=== PATIENT | female | born 1935 | race Caucasian/White ===

== ENCOUNTER 2017-02-08 21:55 | Emergency (ER) | payer MEDICARE ==
[2017-02-08 23:24] LABS: Hematocrit 39 % (35-47); Hemoglobin 13.2 g/dl (12.0-16.0); Mean Corpuscular HGB Conc 34 g/dl (31-36); Mean Corpuscular Hemoglobin 32 pg (27-31); Mean Corpuscular Volume 95 fL (80-97); Mean Platelet Volume 10 um3 (7.4-10.4); Red Blood Count 4.17 10^6/ul (4.0-5.4); Red Cell Distribution Width 14 % (10.5-15); White Blood Count 5.6 10^3/ul (3.5-10.8)
[2017-02-08 23:48] LABS: BUN/Creatinine Ratio 13.3 (8-20); Calcium 9.1 mg/dL (8.6-10.3); EGFR African American 43.1 (>60); EGFR Non-African American 33.5 (>60); Globulin 2.4 g/dL (2-4); Total Bilirubin 0.9 mg/dL (0.2-1.0); Total Protein 6.4 g/dL (6.4-8.9)
[2017-02-09 00:53] LABS: Urine Bacteria Absent (Absent); Urine Bilirubin Negative (Negative); Urine Glucose Negative (Negative); Urine Nitrite Negative (Negative)
[2017-02-09 01:47] VITALS: BP 123/98
--- NOTE | 2017-02-09 04:55 | ED ---
Corry Hines Rebecca, scribed for David Salas on 02/09/17 at 0021 . Hypertension - HPI Summary HPI Summary: Pt is a 81 y/o F who presents to ED c/o elevated BP and CERON. 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 CERON was characterized as a migraine that began at noon. Pain is now resolved, ranked 0/10. Sx aggravated and alleviated by nothing. Additionally c/o worsening tremors. Notes a PMHx of essential tremors but that they have worsened recently. Denies CP, abd pain. PMHx HTN for which she takes Metoprolol. No PMHx [place]. - History of Current Complaint Chief Complaint: EDHypertension Stated Complaint: HAS AFIB,BLOOD PRESSURE UP,TREMORS Time Seen by Provider: 02/09/17 00:00 Hx Obtained From: Patient Onset/Duration: Still Present Aggravating Factor(s): Nothing Alleviating Factor(s): Nothing Associated Signs & Symptoms: Headaches - migraine - resolved - Allergies/Home Medications Allergies/Adverse Reactions: Allergies Allergy/AdvReac Type Severity Reaction Status Date / Time Sulfa Drugs Allergy Severe Difficulty Verified 02/08/17 22:10 Breathing Penicillins [PCN] Allergy Intermediate Hives Verified 02/08/17 22:10 Warfarin Allergy Unknown Verified 02/08/17 22:10 Reaction Details PMH/Surg Hx/FS Hx/Imm Hx Endocrine/Hematology History: Reports: Hx Anticoagulant Therapy - warfarin, Hx Thyroid Disease Denies: Hx Blood Disorders, Hx Blood Transfusions, Hx Bone Marrow Disease, Hx Diabetes, Hx Unexplained Bleeding Cardiovascular History: Reports: Hx Auto Implanted Cardiovert Defib, Hx Hypercholesterolemia, Hx Hypertension, Hx Pacemaker/ICD, Hx Valvular Heart Disease - aortic valve stenosis, Other Cardiovascular Problems/Disorders - TACHY -MARLEE SYNDROME Respiratory History: Denies: Hx Asthma, Hx Chronic Obstructive Pulmonary Disease (COPD), Other Respiratory Problems/Disorders GI History: Reports: Hx Gastroesophageal Reflux Disease, Hx Hiatal Hernia History: Reports: Other Problems/Disorders - frequency Denies: Hx Dialysis Musculoskeletal History: Reports: Hx Arthritis, Hx Orthopedic Injury - Broken Left index finger Denies: Hx Back Problems, Hx Bursitis, Hx Congenital Bone Abnormalities, Hx Fibromyalgia, Hx Gout, Hx Osteoporosis Sensory History: Reports: Hx Cataracts - removed, Hx Contacts or Glasses, Hx Hearing Problem - Right Pt States "not that bad." Denies: Hx Eye Injury, Hx Glaucoma, Hx Macular Degeneration, Hx Vision Problem, Hx Deafness, Hx Hearing Aid, Other Sensory Impairments Opthamlomology History: Reports: Hx Cataracts - removed, Hx Contacts or Glasses Denies: Hx Eye Injury, Hx Glaucoma, Hx Macular Degeneration, Hx Vision Problem, Other Sensory Impairments Neurological History: Reports: Hx Migraine - very seldom now. Denies: Hx Dementia, Hx Seizures Psychiatric History: Reports: Hx Anxiety - Cancer History Cancer Type, Location and Year: three melanoma moles removed. Most recent in 2014 Hx Chemotherapy: No Hx Radiation Therapy: No - Surgical History Surgery Procedure, Year, and Place: RIGHT HIP REPLACEMENT Hx Anesthesia Reactions: No Infectious Disease History: No Infectious Disease History: Reports: Hx Shingles Denies: Traveled Outside the [place] in Last 30 Days - Family History Known Family History: Positive: Cardiac Disease, Hypertension, Diabetes - Social History Alcohol Use: None Substance Use Type: Reports: None Hx Tobacco Use: No Smoking Status (MU): Never Smoked Tobacco Review of Systems Positive: Other - Hypertension Negative: Chest Pain Negative: Abdominal Pain Neurological: Other - Worsening essential tremors Positive: Headache - resolved All Other Systems Reviewed And Are Negative: Yes Physical Exam - Summary Physical Exam Summary: Appearance: Well appearing, no pain distress Skin: warm, dry, reflects adequate perfusion Head/face: normal Eyes: EOMI, RAINA ENT: normal Neck: supple, nontender Respiratory: CTA, breath sounds present Cardiovascular: RRR, pulses symmetrical Abdomen: nontender, soft Bowel: present Musculoskeletal: strength/ROM intact, tremors of the upper extremities Neuro: normal, sensory motor intact, A&Ox3 Triage Information Reviewed: Yes Vital Signs On Initial Exam: Initial Vitals Temp Pulse Resp BP Pulse Ox 96.9 F 61 16 149/79 98 02/08/17 22:13 02/08/17 22:13 02/08/17 22:13 02/08/17 22:13 02/08/17 22:13 Vital Signs Reviewed: Yes - [place] Coma Scale Best Eye Response: 4 - Spontaneous Best Motor Response: 6 - Obeys Commands Best Verbal Response: 5 - Oriented Diagnostics - Vital Signs Vital Signs Temp Pulse Resp BP Pulse Ox 02/09/17 00:14 60 14 95 02/09/17 00:12 135/103 02/08/17 22:13 96.9 F 61 16 149/79 98 - Laboratory Lab Results: Lab Results 02/08/17 02/08/17 02/08/17 Range/Units 22:56 22:56 22:56 WBC 5.6 (3.5-10.8) 10^3/ul RBC 4.17 (4.0-5.4) 10^6/ul Hgb 13.2 (12.0-16.0) g/dl Hct 39 (35-47) % MCV 95 (80-97) fL MCH 32 H (27-31) pg MCHC 34 (31-36) g/dl RDW 14 (10.5-15) % Plt Count 134 L (150-450) 10^3/ul MPV 10 (7.4-10.4) um3 Neut % (Auto) 57.9 (38-83) % Lymph % (Auto) 25.5 (25-47) % Jennings % (Auto) 13.2 H (1-9) % Eos % (Auto) 2.2 (0-6) % Baso % (Auto) 1.2 (0-2) % Absolute Neuts (auto) 3.2 (1.5-7.7) 10^3/ul Absolute Lymphs (auto) 1.4 (1.0-4.8) 10^3/ul Absolute Monos (auto) 0.7 (0-0.8) 10^3/ul Absolute Eos (auto) 0.1 (0-0.6) 10^3/ul Absolute Basos (auto) 0.1 (0-0.2) 10^3/ul Absolute Nucleated RBC 0 10^3/ul Nucleated RBC % 0.1 INR (Anticoag Therapy) 0.90 (0.89-1.11) APTT 29.0 (26.0-36.3) seconds Sodium (133-145) mmol/L Potassium (3.5-5.0) mmol/L Chloride (101-111) mmol/L Carbon Dioxide (22-32) mmol/L Anion Gap (2-11) mmol/L BUN (6-24) mg/dL Creatinine (0.51-0.95) mg/dL Est GFR ( Amer) (>60) Est GFR (Non-Af Amer) (>60) BUN/Creatinine Ratio (8-20) Glucose (70-100) mg/dL Lactic Acid (0.5-2.0) mmol/L Calcium (8.6-10.3) mg/dL Total Bilirubin (0.2-1.0) mg/dL AST (13-39) U/L ALT (7-52) U/L Alkaline Phosphatase (34-104) U/L Troponin I (<0.04) ng/mL B-Natriuretic Peptide 357 H ( - 100) pg/mL Total Protein (6.4-8.9) g/dL Albumin (3.2-5.2) g/dL Globulin (2-4) g/dL Albumin/Globulin Ratio (1-3) 02/08/17 02/08/17 Range/Units 22:56 22:56 WBC (3.5-10.8) 10^3/ul RBC (4.0-5.4) 10^6/ul Hgb (12.0-16.0) g/dl Hct (35-47) % MCV (80-97) fL MCH (27-31) pg MCHC (31-36) g/dl RDW (10.5-15) % Plt Count (150-450) 10^3/ul MPV (7.4-10.4) um3 Neut % (Auto) (38-83) % Lymph % (Auto) (25-47) % Jennings % (Auto) (1-9) % Eos % (Auto) (0-6) % Baso % (Auto) (0-2) % Absolute Neuts (auto) (1.5-7.7) 10^3/ul Absolute Lymphs (auto) (1.0-4.8) 10^3/ul Absolute Monos (auto) (0-0.8) 10^3/ul Absolute Eos (auto) (0-0.6) 10^3/ul Absolute Basos (auto) (0-0.2) 10^3/ul Absolute Nucleated RBC 10^3/ul Nucleated RBC % INR (Anticoag Therapy) (0.89-1.11) APTT (26.0-36.3) seconds Sodium 132 L (133-145) mmol/L Potassium 4.0 (3.5-5.0) mmol/L Chloride 99 L (101-111) mmol/L Carbon Dioxide 27 (22-32) mmol/L Anion Gap 6 (2-11) mmol/L BUN 20 (6-24) mg/dL Creatinine 1.50 H (0.51-0.95) mg/dL Est GFR ( Amer) 43.1 (>60) Est GFR (Non-Af Amer) 33.5 (>60) BUN/Creatinine Ratio 13.3 (8-20) Glucose 107 H (70-100) mg/dL Lactic Acid 0.7 (0.5-2.0) mmol/L Calcium 9.1 (8.6-10.3) mg/dL Total Bilirubin 0.90 (0.2-1.0) mg/dL AST 30 (13-39) U/L ALT 27 (7-52) U/L Alkaline Phosphatase 57 (34-104) U/L Troponin I 0.00 (<0.04) ng/mL B-Natriuretic Peptide ( - 100) pg/mL Total Protein 6.4 (6.4-8.9) g/dL Albumin 4.0 (3.2-5.2) g/dL Globulin 2.4 (2-4) g/dL Albumin/Globulin Ratio 1.7 (1-3) Result Diagrams: 02/08/17 22:56 02/08/17 22:56 Lab Statement: Any lab studies that have been ordered have been reviewed, and results considered in the medical decision making process. - Radiology CXR Xray Interpretation: No Acute Changes Radiology Interpretation Completed By: ED Physician - CT Brain CT CT Interpretation: No Acute Changes - No acute pathology. ED physician reviewed this radiology report and agrees. CT Interpretation Completed By: Radiologist Re-Evaluation - Re-Evaluation First Eval Re-Evaluation Time: 13:29 Comment: Discussed results. Hypertension Course/Dx - Course Assessment/Plan: Pt is a 81 y/o F who presents to ED c/o elevated BP and CERON. 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 CERON was characterized as a migraine that began at noon. Pain is now resolved, ranked 0/ 10. Sx aggravated and alleviated by nothing. Additionally c/o worsening tremors. Notes a PMHx of essential tremors but that they have worsened recently. Denies CP, abd pain. PMHx HTN for which she takes Metoprolol. No PMHx [place]. CXR and Brain CT reveal no acute findings. Pt will be D/C to home with Dx of history of hypertension and a follow up with her PCP. She understands and agrees. Elevated BP noted and advised to f/u with PCP. - Diagnoses Provider Diagnoses: History of hypertension Discharge - Discharge Plan Condition: Stable Disposition: HOME Patient Education Materials: Hypertension (ED) Referrals: Angelica Clark MD [Primary Care Provider] - 3 Days The documentation as recorded by the Corry rajan Rebecca accurately reflects the service I personally performed and the decisions made by Josue luis Emmanuel.
--- NOTE | 2017-02-09 07:58 | RAD ---
INDICATION: Weakness, shortness of breath on exertion. COMPARISON: July 25, 2016 TECHNIQUE: Dual energy PA and routine lateral views of the chest were obtained. REPORT: Elevated lung volumes and both diffuse mild prominence of the interstitial markings and patchy rarefaction of the mid to upper lung zone interstitial markings. No focal pulmonary lesion, compelling alveolar consolidation, pleural effusion, pneumothorax. RIGHT atrial and RIGHT ventricular LEFT chest wall pacemaker leads appear unchanged. Negative for cardiomegaly. Unremarkable central pulmonary vasculature and mediastinal contours. Thoracic degenerative spondylosis. No thoracic fractures evident. IMPRESSION: Stigmata of obstructive lung disease. No acute pulmonary or cardiac process evident.
--- NOTE | 2017-02-09 08:02 | RAD ---
Indication: Headache and elevated blood pressure. Anticoagulated. Comparison: August 30, 2011 Technique: Noncontrast CT vertex of skull through foramen magnum. Report: Moderate prominence of the cerebral sulci and mild prominence of the cerebellar fissures reflecting atrophy. Unremarkable ventricles and basal cisterns. 0.9 cm chronic lacunar infarct at the RIGHT parietal lobe white matter. Decreased density in the periventricular and subcortical white matter while non-specific is most likely due to chronic microangiopathy. Negative for palomares matter white matter obscuration, intra or extra-axial hemorrhage, or mass effect. Large vessel arterial calcifications present at the skull base. Unremarkable visualized orbital contents. No suspicious calvarial or skull base lesions evident. Clear visualized paranasal sinuses and mastoid air spaces. Negative for scalp hematoma. IMPRESSION: 1. No evidence for intracranial hemorrhage or other acute intracranial process. 2. Atrophy and stigmata of chronic small vessel ischemic disease. Small chronic RIGHT parietal lacunar infarct.
--- NOTE | 2017-02-12 08:55 | ED ---
Progress - Progress Note Progress Note: Pt's urine cx reveals 25-50,000 strep group B. She presented w/ a CERON and h/o HTN - pain resolved during visit. Her urine had minimal irregularities and she had no complaints. Due to low organism count w/o sx, she may be colonized with group B strep and therefore no tx is needed at this time. Re-Evaluation - Re-Evaluation First Eval Re-Evaluation Time: 13:29 Comment: Discussed results. Course/Dx - Diagnoses Provider Diagnoses: History of hypertension
== END 2017-02-09 02:01 | disposition home or self-care (01) ==
LOC: ED 21:55
DX: Z86.79 Personal history of other diseases of the circulatory system (principal); Z79.01 Long term (current) use of anticoagulants
CPT/HCPCS: 36415; 70450; 71020; 80053; 81003; 81015; 83605; 83880; 84484; 85025; 85610; 85730; 87077; 87086; 99282

== ENCOUNTER 2017-02-21 10:42 | Inpatient (IN) | payer MEDICARE ==
[2017-02-21] MEDS ORDERED: Ondansetron INJ* 2 MG/ML VIAL IV ONE (12:38)
[2017-02-21] MEDS ORDERED: Morphine INJ* 2 MG/ML 1 ML CARPUJECT IV ONE (12:38)
[2017-02-21] MEDS ORDERED: HYDROmorphone INJ* 1 MG/ML CARPUJECT SYRINGE IV SLOW PU ONE (13:52)
[2017-02-21 13:54] LABS: Hematocrit 37 % (35-47); Hemoglobin 12.3 g/dl (12.0-16.0); Mean Corpuscular HGB Conc 34 g/dl (31-36); Mean Corpuscular Hemoglobin 32 pg (27-31); Mean Corpuscular Volume 95 fL (80-97); Mean Platelet Volume 10 um3 (7.4-10.4); Red Blood Count 3.87 10^6/ul (4.0-5.4); Red Cell Distribution Width 14 % (10.5-15); White Blood Count 9.8 10^3/ul (3.5-10.8)
[2017-02-21 14:12] LABS: EGFR African American 38.1 (>60); EGFR Non-African American 29.6 (>60); Potassium 4.4 mmol/L (3.5-5.0)
[2017-02-21 14:34] LABS: Urine Bacteria Absent (Absent); Urine Bilirubin Negative (Negative); Urine Glucose Negative (Negative); Urine Nitrite Negative (Negative)
--- NOTE | 2017-02-21 15:02 | RAD ---
HISTORY: Back pain, trauma, fall COMPARISONS: None VIEWS: 6 , Frontal, lateral, coned-down lateral sacral, and bilateral oblique views of the lumbar spine. FINDINGS: ALIGNMENT: The alignment is normal. VERTEBRAL BODIES: There is multilevel anterolateral marginal osteophyte formation. There is diffuse osteopenia. The vertebral bodies are preserved in height. JOINTS: There is diffuse facet osteoarthritic change INTERVERTEBRAL DISCS: There is diffuse loss of intervertebral disc height. SOFT TISSUE: Unremarkable. OTHER: The patient is status post right hip arthroplasty. IMPRESSION: 1. OSTEOPENIA. 2. DEGENERATIVE DISC DISEASE AND OSTEOARTHRITIS. 3. NO ACUTE OSSEOUS INJURY. IF SYMPTOMS PERSIST, RECOMMEND REPEAT IMAGING
--- NOTE | 2017-02-21 15:03 | RAD ---
Indication: Fall, right hip pain, left hip pain. Single view the pelvis and 2 views of the right hip and 2 views of left hip were reviewed. There is a right hip prosthesis in place. Acetabular and femoral components are well seated. There is no fracture noted. Pelvic ring is intact. Sacroiliac joints are unremarkable. The left hip is grossly unremarkable. There is some mild cortical incongruity in the right inferior pubic rami for which a nondisplaced fracture cannot BE excluded. IMPRESSION: Right hip replacement with no evidence of periprosthetic fracture. Left hip demonstrates no fracture. Question of right inferior pubic ramus fracture which is nondisplaced.
[2017-02-21] MEDS ORDERED: Ondansetron INJ* 2 MG/ML VIAL IV PRN (15:41)
--- NOTE | 2017-02-21 16:14 | RAD ---
Indication: Pelvic fracture on x-ray. CT of the pelvis was obtained in the axial plane. Sagittal and coronal reconstructed images were obtained. The lower lumbar spine demonstrates no fracture. Facet arthropathy is noted at L5-S1. The iliac wings appears to be intact with no evidence of fracture. There is a right hip prosthesis noted. There is a nondisplaced fracture of the right inferior pubic ramus. Soft tissue swelling is noted adjacent. The urinary bladder is unremarkable. Patient is status post hysterectomy. No pelvic masses are noted. IMPRESSION: Nondisplaced fracture right inferior pubic ramus. Right hip prosthesis is in place.
[2017-02-21] MEDS: Lidocaine PATCH 5%* 1 PATCH TRANSDERM SCH (17:07)
[2017-02-21] MEDS: HYDROcodone/ACETAMIN 5-325 MG* 1 TAB PO PRN ×2 (17:11→20:58)
[2017-02-21] MEDS: Atorvastatin* 10 MG TAB PO SCH (17:12)
--- NOTE | 2017-02-21 17:57 | HP ---
CC: Dr. Clark * HISTORY AND PHYSICAL: DATE OF ADMISSION: 02/21/17 PRIMARY CARE PROVIDER: Dr. Clark. ATTENDING PHYSICIAN WHILE IN THE HOSPITAL: Edmund Worthington MD *(report dictated by Mario Alberto Brown NP) CHIEF COMPLAINT: Fall. HISTORY OF PRESENT ILLNESS: Ms. 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 She did not hit her head. She had no loss of consciousness. She knew something was wrong immediately, she could not get up. She was having a significant amount of pain in her left hip. The patient was calling out for help. One of her daughters came to her aid and her daughter and a friend helped the patient up to the couch and then shortly after she was still having a significant amount of pain and because of the fall and now the recent pain, they brought her into the emergency department to be evaluated. She denied having any chest pain prior to or after. She denied having any shortness of breath. Denied having any abdominal discomfort. Denied having any recent nausea, vomiting. No dysuria. No frequency. Again, she denied having any loss of consciousness with the fall. Denied having any syncope or hitting her head. She came in, was evaluated by Dr. Thomas and was found on x-ray that there might be a possible nondisplaced pubic rami fracture. Because of this, we were asked to evaluate for admission. PAST MEDICAL HISTORY: Significant for: 1. AFib. 2. Tachy-inez syndrome, status post pacemaker. 3. Hypothyroidism. 4. Aortic stenosis. 5. Hyperlipidemia. 6. Hiatal hernia. 7. Tremors. 8. History of pericardial effusion, status post pericardiocentesis about a year ago. 9. History of melanoma. PAST SURGICAL HISTORY: 1. She has had a pericardiocentesis. 2. Tonsillectomy. 3. Hysterectomy. 4. Laparoscopic cholecystectomy. 5. Bladder repair. 6. Right total hip arthroplasty. MEDICATIONS: The home medications according to the list that we have in the computer is being updated and include: 1. Tylenol 650 mg every 6 hours as needed. 2. Amiodarone 400 mg daily. 3. Vitamin D 2000 units daily. 4. Colace 100 mg p.o. b.i.d. 5. Synthroid 75 mcg daily. 6. Lopressor 25 mg p.o. every 12 hours. 7. Crestor 5 mg p.o., take as directed. 8. Senna 2 tablets p.o. at bedtime as needed. 9. Multivitamin 1 tablet daily. ALLERGIES TO MEDICATIONS: Include SULFA, PENICILLIN, and WARFARIN. FAMILY HISTORY: Mother had a history of hypertension and CVA. Father had a history of diabetes and heart disease, at the age of 62. SOCIAL HISTORY: The patient does not drink. She does not smoke. Surrogate decision maker is her son. REVIEW OF SYSTEMS: There is no documented fever. She denied having any significant weight change. There was no double vision. There is no ear discharge. There was no rhinorrhea, no sore throat. No thyroid enlargement. Denied having any chest pain. There was no orthopnea. There was no nocturnal dyspnea. There was no abdominal pain. No nausea, no vomiting. No dysuria. There was no frequency. No seizure. No loss of consciousness, no pruritus and no skin ulcerations. Review of 14 systems completed, all others negative. PHYSICAL EXAMINATION GENERAL: At this time, Ms. Dowd is a 81-year-old female patient. She appears to be well nourished, well developed. She does not appear to be in any acute distress. VITAL SIGNS: Blood pressure 152/64, pulse 61, respirations 18, O2 sat 98% on room air, and temperature was 98.2. HEENT: Head is atraumatic and normocephalic. Eyes: EOMs are intact. Sclerae anicteric and not pale. Throat: Oral mucosa appears to be moist. No oropharyngeal erythema. NECK: Supple. HEART: Sounds S1 and S2. Regular rate and rhythm. No rubs or gallops. There was a grade 2/3 aortic systolic murmur. EXTREMITIES: Pulses were 2+ throughout. She has difficulty moving the right extremity because of a significant amount of pain when she does move it, but distal CSM checks are intact. No peripheral edema. NEUROLOGIC: The patient is awake, alert, oriented x3. Tongue midline. Figure Clerk equal. No gross focal deficits. SKIN: Intact. LABORATORY DATA/DIAGNOSTIC STUDIES: Labs today revealed WBC of 9.8, RBC of 3.87, hemoglobin 12.3, hematocrit 37, platelet count was 123,000. The sodium was 135, potassium was 4.4, chloride of 102, bicarb 28, BUN 25, creatinine 1.67 which is right near baseline and glucose of 111. Calcium 9. Urine was obtained , it was negative. There was a lumbar spine x-ray, which revealed osteopenia, degenerative disk disease, and osteoarthritis. No acute osseous injury. Hip x-ray showed impression, right hip replacement with no evidence of periprosthetic fracture. Left hip demonstrates no fracture, question of right inferior pubic ramus fracture which is nondisplaced. EKG today showed a paced rhythm, rate of 60. Old medical records were reviewed. ASSESSMENT AND PLAN: Ms. Dowd is a 81-year-old female patient who comes in today with complaints of mechanical fall. On evaluation, had question of a pubic rami fracture. She will be admitted under observation status for: 1. Question of a pubic rami fracture. At this point, CT of the pelvis is pending but on clinical exam, she appears to have a significant amount of pain. I am waiting for the CT. Depending on these findings, I will touch base with Orthopedics, but if it is a pubic rami fracture and it is nonsurgical, the plan would be for PT evaluation, pain control. She may benefit from subacute rehab stay. 2. History of atrial fibrillation. She is not on any blood thinners due to the fact of the pericardial effusion in the past. She is rate controlled. We will continue her meds. 3. History of hypothyroidism. We will continue Synthroid. 4. History of aortic stenosis. 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 5. Hyperlipidemia. Continue her Crestor. 6. Hiatal hernia. Continue her meds as prescribed. 7. History of essential tremor. Continue meds as prescribed. 8. Pericardial effusion. Not an active issue. She can follow with her primary and her primary business editor. 9. Melanoma. She can follow with her primary care provider. 10. DVT prophylaxis. She is high risk now with this fracture. I am going to put her on SCDs and heparin subcu. 11. Code status. She is DNR. 12. Fluids, electrolytes, and nutrition. She can have a heart healthy diet. TIME SPENT: On the admission 60 minutes; greater than half the time was spent face- to-face with the patient obtaining my history and physical, other half the time was spent going over the plan of care with the patient and implementing the plan of care. Discussed plan of care with my attending, Dr. Worthington; he is in agreement. MARIO ALBETRO BROWN NP [id number]/CPS #: [id number] MARINA
[2017-02-21] MEDS: Lidocaine Patch REMOVE* 1 NOTE MISC SCH (20:47)
[2017-02-21] MEDS: Metoprolol Tartrate TAB* 50 mg PO SCH (20:59)
[2017-02-21] MEDS: Heparin VIAL(*) 5000 UNITS/ML VIAL (FIVE THOUSAND) SUBCUT SCH (20:59)
[2017-02-21] MEDS: Gabapentin CAP(*) 100 MG PO SCH (20:59)
[2017-02-22] MEDS: Acetaminophen TAB* 325 MG PO PRN (03:08)
[2017-02-22] MEDS: Heparin VIAL(*) 5000 UNITS/ML VIAL (FIVE THOUSAND) SUBCUT SCH ×2 (04:38→21:16)
[2017-02-22] MEDS: Levothyroxine TAB* 75 MCG TAB PO SCH (05:46)
[2017-02-22 06:59] LABS: Hematocrit 32 % (35-47); Hemoglobin 10.9 g/dl (12.0-16.0); Mean Corpuscular HGB Conc 34 g/dl (31-36); Mean Corpuscular Hemoglobin 32 pg (27-31); Mean Corpuscular Volume 94 fL (80-97); Mean Platelet Volume 10 um3 (7.4-10.4); Red Blood Count 3.43 10^6/ul (4.0-5.4); Red Cell Distribution Width 14 % (10.5-15); White Blood Count 6.3 10^3/ul (3.5-10.8)
[2017-02-22 07:09] LABS: Comments Flag Yes
[2017-02-22 07:10] LABS: Add Diff/Slide Review? Slide Review Added
[2017-02-22 07:14] LABS: BUN/Creatinine Ratio 16.2 (8-20); Calcium 8.5 mg/dL (8.6-10.3); EGFR African American 41.8 (>60); EGFR Non-African American 32.5 (>60); Potassium 4.4 mmol/L (3.5-5.0)
[2017-02-22] MEDS: HYDROcodone/ACETAMIN 5-325 MG* 1 TAB PO PRN ×3 (08:09→18:19)
[2017-02-22] MEDS ORDERED: Primidone TAB(*) 50 MG PO SCH (09:00)
[2017-02-22] MEDS ORDERED: Influenza VAC *QUAD* 2017-18* 0.5 ML SYRINGE IM ONE (09:00)
[2017-02-22] MEDS: Lidocaine PATCH 5%* 1 PATCH TRANSDERM SCH (10:13)
[2017-02-22] MEDS: Gabapentin CAP(*) 100 MG PO SCH ×2 (10:14→21:15)
[2017-02-22] MEDS: Amiodarone TAB* 200 MG PO SCH (10:14)
[2017-02-22] MEDS: Metoprolol Tartrate TAB* 50 mg PO SCH ×2 (10:15→20:43)
--- NOTE | 2017-02-22 10:30 | PN ---
Subjective Date of Service: 02/22/17 Interval History: Patient seen and examined at bedside. Ms. Dowd is a 81 yo female who unfortunately sustained a mechanical fall via a missed step and suffered a non- displaced fx of the pubic rami. Prior to the fall, the patient had good functional status, as she was previously independent with ADLs and lives at home by herself. She denies any CP, SOB, n/v. She reports having difficulty sleeping last night, secondary to nocturia and pain. She experiences the most pain when trying to roll onto the bedpan. She is very apprehensive about moving, as she has significant pain while rolling in bed. We spoke extensively about the need to communicate with nursing and honestly reporting her pain, as well as the importance of pain management so that she can participate in therapies to regain her mobility. She also expressed concern about her SQ heparin, as she was admitted last year with pericardial effusion and tamponade that was thought to be secondary to her warfarin for PAF. We discussed her increased risk for thrombus, given her afib, acute fx, and decreased mobility. Patient is also ordered SCDs. Patient also follows with Dr. Davis for tremors and was recently started on primidone (which she stopped due to dizziness and somnolence under the advisement of her PCP) and gabapentin. Family History: Unchanged from Admission Social History: Unchanged from Admission Past Medical History: Unchanged from Admission Objective Active Medications: Acetaminophen (Tylenol Tab*) 650 mg PO Q4H PRN PRN Reason: FEVER/PAIN Last Admin: 02/22/17 03:08 Dose: 650 mg Hydrocodone Bitart/Acetaminophen ([place] 5-325 Tab*) 1 tab PO Q4H PRN PRN Reason: PAIN Last Admin: 02/22/17 08:09 Dose: 1 tab Amiodarone HCl (Cordarone Tab*) 200 mg PO DAILY [facility] Last Admin: 02/22/17 10:14 Dose: 200 mg Atorvastatin Calcium (Lipitor*) 10 mg PO SUTUTHSA [facility] PRN Reason: Protocol Last Admin: 02/21/17 17:12 Dose: 10 mg Gabapentin (Neurontin Cap(*)) 200 mg PO TID [facility] Last Admin: 02/22/17 10:14 Dose: 200 mg Heparin Sodium (Porcine) (Heparin Vial(*)) 5,000 units SUBCUT Q8HR [facility] Last Admin: 02/22/17 04:38 Dose: Not Given Levothyroxine Sodium (Synthroid Tab*) 75 mcg PO DAILY@0600 [facility] Last Admin: 02/22/17 05:46 Dose: 75 mcg Lidocaine (Lidoderm 5% Patch*) 1 patch TRANSDERM DAILY [facility] Last Admin: 02/22/17 10:13 Dose: 1 patch Metoprolol Tartrate (Lopressor Tab*) 50 mg PO BID [facility] Last Admin: 02/22/17 10:15 Dose: Not Given Ondansetron HCl (Zofran Inj*) 4 mg IV Q6H PRN PRN Reason: NAUSEA Pharmacy Profile Note (Lidocaine Patch Remove*) 1 note N/A 2100 [facility] Last Admin: 02/21/17 20:47 Dose: Not Given Primidone (Mysoline Tab(*)) 50 mg PO DAILY [facility] Senna (Senokot Tab*) 2 tab PO BEDTIME PRN PRN Reason: CONSTIPATION Vital Signs 02/21/17 02/21/17 02/21/17 16:00 16:11 16:59 Temperature 98.0 F 98.0 F Pulse Rate 60 59 59 Respiratory 12 18 16 Rate Blood Pressure 114/80 114/80 (mmHg) O2 Sat by Pulse 95 96 96 Oximetry 02/21/17 02/21/17 02/21/17 17:11 19:11 19:31 Temperature 98.5 F Pulse Rate 60 Respiratory 20 18 16 Rate Blood Pressure 155/91 (mmHg) O2 Sat by Pulse 95 Oximetry 02/21/17 02/21/17 02/21/17 20:58 20:59 22:58 Temperature Pulse Rate Respiratory 18 18 16 Rate Blood Pressure (mmHg) O2 Sat by Pulse Oximetry 02/21/17 02/21/17 02/21/17 22:59 23:07 23:11 Temperature 98.4 F Pulse Rate 59 Respiratory 18 16 Rate Blood Pressure 81/41 98/58 (mmHg) O2 Sat by Pulse 95 Oximetry 02/22/17 02/22/17 02/22/17 03:13 07:31 08:09 Temperature 98.4 F 98.3 F Pulse Rate 60 59 Respiratory 16 20 16 Rate Blood Pressure 84/67 95/43 (mmHg) O2 Sat by Pulse 96 95 Oximetry 02/22/17 02/22/17 02/22/17 10:01 10:09 10:14 Temperature Pulse Rate Respiratory 16 16 Rate Blood Pressure (mmHg) O2 Sat by Pulse 93 Oximetry Oxygen Devices in Use Now: Nasal Cannula Appearance: Older female, lying in bed, in NAD Eyes: No Scleral Icterus Ears/Nose/Mouth/Throat: Clear Oropharnyx, Mucous Membranes Moist Neck: NL Appearance and Movements; NL JVP Respiratory: Symmetrical Chest Expansion and Respiratory Effort, Clear to Auscultation Cardiovascular: RRR - grade 3/6 systolic murmur Abdominal: NL Sounds; No Tenderness; No Distention Extremities: No Edema, No Clubbing, Cyanosis, - - distal pulses 2+ and symmetrical Skin: No Rash or Ulcers Neurological: Alert and Oriented x 3, NL Muscle Strength and Tone Lines/Tubes/Other Access: Clean, Dry and Intact Peripheral IV Nutrition: Taking PO's Result Diagrams: 02/22/17 06:34 02/22/17 06:34 Diagnostic Imaging: CT Pelvis IMPRESSION: Nondisplaced fracture right inferior pubic ramus. Right hip prosthesis is in place. Assess/Plan/Problems-Billing Assessment: Ms. Dowd is a 81 yo female with a PMH of atrial fibrillation, tachy-inez syndrome s/p pacemaker, hypothyroidism, aortic stenosis, HLD, tremors, and pericardial effusion s/p pericardiocentesis who presented to the hospital on after a fall and was found to have a pubic rami fracture. - Patient Problems (1) Fracture of pubic ramus Code(s): S32.599A - OTH FRACTURE OF UNSP PUBIS, INIT ENCNTR FOR CLOSED FRACTURE Comment: CT pelvis shows nondisplaced fracture right inferior pubic ramus. Nonsurgical management - cont pain management, PT/OT PMRU referral - patient had good functional status prior and would be a good candidate. (2) Atrial fibrillation Code(s): I48.91 - UNSPECIFIED ATRIAL FIBRILLATION Comment: Currently NSR Continue metoprolol, amiodarone Patient no longer on warfarin, secondary to hx of bloody pericardial effusion (3) Hypothyroid Code(s): E03.9 - HYPOTHYROIDISM, UNSPECIFIED Comment: Continue levothyroxine. (4) Essential tremor Code(s): G25.0 - ESSENTIAL TREMOR Comment: Pt follows with Dr. Davis as an outpatient Pt stopped her primidone, secondary to adverse effects Continue gabapentin; pt is to continue BID dosing and start TID dosing on Mon (5) HLD (hyperlipidemia) Code(s): E78.5 - HYPERLIPIDEMIA, UNSPECIFIED Comment: Continue statin. (6) Aortic stenosis Code(s): Q25.3 - SUPRAVALVULAR AORTIC STENOSIS Comment: Moderate to severe Continue outpatient f/u with Dr. Espino. (7) DVT prophylaxis Comment: SQ heparin BID SCDs Hx of hemorrhagic effusion Status and Disposition: OBV to inpatient. PMRU referral. Anticipate rehab needs.
[2017-02-22] MEDS ORDERED: Morphine INJ* 4 MG/ML 1 ML CARPUJECT IV PRN (15:51)
[2017-02-22] MEDS: CMCS: Melatonin (NF) 3 MG TAB PO SCH (21:15)
[2017-02-22] MEDS: Lidocaine Patch REMOVE* 1 NOTE MISC SCH (21:16)
[2017-02-23] MEDS: HYDROcodone/ACETAMIN 5-325 MG* 1 TAB PO PRN ×3 (05:32→21:25)
[2017-02-23] MEDS: Levothyroxine TAB* 75 MCG TAB PO SCH (05:32)
[2017-02-23 06:32] LABS: Hematocrit 30 % (35-47); Hemoglobin 10.2 g/dl (12.0-16.0); Mean Corpuscular HGB Conc 34 g/dl (31-36); Mean Corpuscular Hemoglobin 32 pg (27-31); Mean Corpuscular Volume 94 fL (80-97); Mean Platelet Volume 10 um3 (7.4-10.4); Red Blood Count 3.17 10^6/ul (4.0-5.4); Red Cell Distribution Width 14 % (10.5-15)
[2017-02-23 06:38] LABS: Comments Flag Yes
[2017-02-23 06:39] LABS: Add Diff/Slide Review? Slide Review Added
[2017-02-23 06:41] LABS: BUN/Creatinine Ratio 14.4 (8-20); Calcium 8.6 mg/dL (8.6-10.3); EGFR Non-African American 36.6 (>60); Potassium 4.1 mmol/L (3.5-5.0)
[2017-02-23] MEDS: Gabapentin CAP(*) 100 MG PO SCH ×2 (08:22→21:25)
[2017-02-23] MEDS: Heparin VIAL(*) 5000 UNITS/ML VIAL (FIVE THOUSAND) SUBCUT SCH ×2 (08:24→21:26)
[2017-02-23] MEDS: Amiodarone TAB* 200 MG PO SCH (08:25)
[2017-02-23] MEDS: Metoprolol Tartrate TAB* 50 mg PO SCH ×2 (08:25→21:29)
[2017-02-23] MEDS: Acetaminophen TAB* 325 MG PO PRN (08:26)
--- NOTE | 2017-02-23 08:44 | ED ---
Renetta Hines Thomas, scribed for John Thomas MD on 02/21/17 at 1253 . Back Pain - HPI Summary HPI Summary: The pt is a 81 y/o F presenting to the ED c/o pains in her lower back, bilateral lower extremity, and right arm s/p a fall that occurred today at 10: 00. She says that she was walking down the stairs when she missed a step and she fell on her right side and her back. She rates the pain 10/10 and it is constant. All of her pains are worsened with movement, especially her lower back. When she moves her arm, this aggravates her lower back pain. The patient has treated the pain with nothing [employer]. Pt denies CERON and neck pain. She was seen at [facility] ED on 02/08/17 with tremors after she began a new medication. She sees Dr. Davis. Her tremor is constant and she speculates that it interferes with her walking. PMHx: HTN, HLD, essential tremors, A-Fib, arthritis. PSHx: pacemaker, R hip replacement. SHx: no smoking, no alcohol use, no illicit drug use. She uses a walker to get around. She is accompanied by her daughter and a male family member. - History of Current Complaint Chief Complaint: EDHipPelvisInjury Stated Complaint: FALL,DOWN STEPS, BACK PAIN, Time Seen by Provider: 02/21/17 12:45 Hx Obtained From: Patient, Family/Legal Referee - daugther, male family member present Onset/Duration: Sudden Onset, Lasting Hours - fall was today at 10:00, Still Present Timing: Constant Back Pain Location: Is Discrete @ - lower back Severity Currently: Severe Pain Intensity: 10 Pain Scale Used: 0-10 Numeric Character: Aching Aggravating Symptom(s): Movement, Walking Alleviating Symptom(s): Nothing Associated Signs And Symptoms: Negative: Fever, Other - NEG: ECRON, neck pain - Allergies/Home Medications Allergies/Adverse Reactions: Allergies Allergy/AdvReac Type Severity Reaction Status Date / Time Sulfa Drugs Allergy Severe Difficulty Verified 02/08/17 22:10 Breathing Penicillins [PCN] Allergy Intermediate Hives Verified 02/08/17 22:10 Warfarin Allergy Unknown Verified 02/08/17 22:10 Reaction Details Home Medications: Home Medications Amiodarone TAB* [Cordarone TAB*] 200 mg PO DAILY 02/21/17 [History Confirmed 05/28] Docusate CAP* [Colace Cap*] 100 mg PO BID PRN 02/21/17 [History Confirmed ] Gabapentin CAP(*) [Neurontin 100 mg CAP(*)] 200 mg PO TID 02/21/17 [History Confirmed 02/21/17] Levothyroxine TAB* [Synthroid TAB*] 75 mcg PO DAILY 02/21/17 [History Confirmed 02/21/17] Metoprolol Tartrate TAB* [Lopressor TAB*] 50 mg PO BID 02/21/17 [History Confirmed 02/21/17] Primidone TAB(*) [Mysoline TAB(*)] 50 mg PO DAILY 02/21/17 [History Confirmed ] Rosuvastatin (NF) [Crestor (NF)] 5 mg PO SUTUTHSA 02/21/17 [History Confirmed ] PMH/Surg Hx/FS Hx/Imm Hx Previously Healthy: No Endocrine/Hematology History: Reports: Hx Anticoagulant Therapy - warfarin, Hx Thyroid Disease Denies: Hx Blood Disorders, Hx Blood Transfusions, Hx Bone Marrow Disease, Hx Diabetes, Hx Unexplained Bleeding Cardiovascular History: Reports: Hx Auto Implanted Cardiovert Defib, Hx Hypercholesterolemia, Hx Hypertension, Hx Pacemaker/ICD, Hx Valvular Heart Disease - aortic valve stenosis, Other Cardiovascular Problems/Disorders - TACHY -MARLEE SYNDROME Respiratory History: Denies: Hx Asthma, Hx Chronic Obstructive Pulmonary Disease (COPD), Other Respiratory Problems/Disorders GI History: Reports: Hx Gastroesophageal Reflux Disease, Hx Hiatal Hernia History: Reports: Other Problems/Disorders - frequency Denies: Hx Dialysis Musculoskeletal History: Reports: Hx Arthritis, Hx Orthopedic Injury - Broken Left index finger Denies: Hx Back Problems, Hx Bursitis, Hx Congenital Bone Abnormalities, Hx Fibromyalgia, Hx Gout, Hx Osteoporosis Sensory History: Reports: Hx Cataracts - removed, Hx Contacts or Glasses, Hx Hearing Problem - Right Pt States "not that bad." Denies: Hx Eye Injury, Hx Glaucoma, Hx Macular Degeneration, Hx Vision Problem, Hx Deafness, Hx Hearing Aid, Other Sensory Impairments Opthamlomology History: Reports: Hx Cataracts - removed, Hx Contacts or Glasses Denies: Hx Eye Injury, Hx Glaucoma, Hx Macular Degeneration, Hx Vision Problem, Other Sensory Impairments Neurological History: Reports: Hx Migraine - very seldom now. Denies: Hx Dementia, Hx Seizures Psychiatric History: Reports: Hx Anxiety - Cancer History Cancer Type, Location and Year: three melanoma moles removed. Most recent in 2014 Hx Chemotherapy: No Hx Radiation Therapy: No - Surgical History Surgery Procedure, Year, and Place: RIGHT HIP REPLACEMENT, pacemaker Hx Anesthesia Reactions: No Infectious Disease History: No Infectious Disease History: Reports: Hx Shingles Denies: Traveled Outside the [place] in Last 30 Days - Family History Known Family History: Positive: Cardiac Disease, Hypertension, Diabetes - Social History Alcohol Use: None Substance Use Type: Reports: None Hx Tobacco Use: No Smoking Status (MU): Never Smoked Tobacco Review of Systems Negative: Fever, Chills Negative: Erythema - eyes Negative: Sore Throat Negative: Chest Pain Negative: Shortness Of Breath, Cough Negative: Abdominal Pain, Vomiting, Nausea Negative: dysuria, hematuria Positive: Other - POS: lower back pain, bilateral lower extremity pain, right arm pain. Negative: Myalgia, Edema - leg Negative: Rash Neurological: Other - POS: essential tremor; NEG: dizziness, LOC Negative: Headache All Other Systems Reviewed And Are Negative: Yes Physical Exam - Summary Physical Exam Summary: Constitutional: Well-developed, Well-nourished, Alert. (-) Distressed Skin: Warm, Dry HENT: Normocephalic; Atraumatic Eyes: Conjunctiva normal Neck: Musculoskeletal ROM normal neck. (-) JVD, (-) Stridor, (-) Tracheal deviation Cardio: Rhythm regular, rate normal, Heart sounds normal; Intact distal pulses; The pedal pulses are 2+ and symmetric. Radial pulses are 2+ and symmetric. (-) Murmur Pulmonary/Chest wall: Effort normal. (-) Respiratory distress, (-) Wheezes, (-) Rales Abd: Soft, (-) Tenderness, (-) Distension, (-) Guarding, (-) Rebound Musculoskeletal: (-) Edema. There is anterior and lateral tenderness to the right hip. She does not tolerate any range of motion with that hip. Lymph: (-) Cervical adenopathy Neuro: Alert, Oriented x3 Psych: Mood and affect Normal Triage Information Reviewed: Yes Vital Signs On Initial Exam: Initial Vitals Temp Pulse Resp BP Pulse Ox 96.2 F 60 16 103/73 95 09/12/17 10:52 02/21/17 10:52 02/21/17 10:52 02/21/17 10:52 02/21/17 10:52 Vital Signs Reviewed: Yes - [place] Coma Scale Coma Scale Total: 15 Diagnostics - Vital Signs Vital Signs Temp Pulse Resp BP Pulse Ox 02/21/17 12:00 60 13 153/66 93 02/21/17 11:34 114 92 02/21/17 11:32 149/86 02/21/17 11:30 98.2 F 60 20 149/86 93 02/21/17 10:52 96.2 F 60 16 103/73 95 - Laboratory Lab Results: Lab Results 02/21/17 02/21/17 02/21/17 Range/Units 12:45 12:45 13:45 WBC 9.8 (3.5-10.8) 10^3/ul RBC 3.87 L (4.0-5.4) 10^6/ul Hgb 12.3 (12.0-16.0) g/dl Hct 37 (35-47) % MCV 95 (80-97) fL MCH 32 H (27-31) pg MCHC 34 (31-36) g/dl RDW 14 (10.5-15) % Plt Count 123 L (150-450) 10^3/ul MPV 10 (7.4-10.4) um3 Neut % (Auto) (38-83) % Lymph % (Auto) (25-47) % [place] % (Auto) (1-9) % Eos % (Auto) (0-6) % Baso % (Auto) (0-2) % Absolute Neuts (auto) (1.5-7.7) 10^3/ul Absolute Lymphs (auto) (1.0-4.8) 10^3/ul Absolute Monos (auto) (0-0.8) 10^3/ul Absolute Eos (auto) (0-0.6) 10^3/ul Absolute Basos (auto) (0-0.2) 10^3/ul Absolute Nucleated RBC 10^3/ul Nucleated RBC % Hem Pathologist Commnt INR (Anticoag Therapy) (0.89-1.11) Sodium 135 (133-145) mmol/L Potassium 4.4 (3.5-5.0) mmol/L Chloride 102 (101-111) mmol/L Carbon Dioxide 28 (22-32) mmol/L Anion Gap 5 (2-11) mmol/L BUN 25 H (6-24) mg/dL Creatinine 1.67 H (0.51-0.95) mg/dL Est GFR ( Amer) 38.1 (>60) Est GFR (Non-Af Amer) 29.6 (>60) BUN/Creatinine Ratio 15.0 (8-20) Glucose 111 H (70-100) mg/dL Calcium 9.0 (8.6-10.3) mg/dL Urine Color Yellow Urine Appearance Clear Urine pH 5.0 (5-9) Ur Specific [place] 1.017 (1.010-1.030) Urine Protein Negative (Negative) Urine Ketones Negative (Negative) Urine Blood Negative (Negative) Urine Nitrate Negative (Negative) Urine Bilirubin Negative (Negative) Urine Urobilinogen Negative (Negative) Ur Leukocyte Esterase Negative (Negative) Urine WBC (Auto) Trace(0-5/hpf) (Absent) Urine RBC (Auto) Trace(0-2/hpf) (Absent) Ur Squamous Epith Cells Present H (Absent) Urine Bacteria Absent (Absent) Urine Glucose Negative (Negative) 02/22/17 02/22/17 02/22/17 Range/Units 06:34 06:34 06:34 WBC 6.3 (3.5-10.8) 10^3/ul RBC 3.43 L (4.0-5.4) 10^6/ul Hgb 10.9 L (12.0-16.0) g/dl Hct 32 L (35-47) % MCV 94 (80-97) fL MCH 32 H (27-31) pg MCHC 34 (31-36) g/dl RDW 14 (10.5-15) % Plt Count 95 L (150-450) 10^3/ul MPV 10 (7.4-10.4) um3 Neut % (Auto) 64.0 (38-83) % Lymph % (Auto) 21.0 L (25-47) % [place] % (Auto) 13.5 H (1-9) % Eos % (Auto) 0.7 (0-6) % Baso % (Auto) 0.8 (0-2) % Absolute Neuts (auto) 4.0 (1.5-7.7) 10^3/ul Absolute Lymphs (auto) 1.3 (1.0-4.8) 10^3/ul Absolute Monos (auto) 0.8 (0-0.8) 10^3/ul Absolute Eos (auto) 0 (0-0.6) 10^3/ul Absolute Basos (auto) 0.1 (0-0.2) 10^3/ul Absolute Nucleated RBC 0 10^3/ul Nucleated RBC % 0.1 Hem Pathologist Commnt INR (Anticoag Therapy) 1.00 (0.89-1.11) Sodium 131 L (133-145) mmol/L Potassium 4.4 (3.5-5.0) mmol/L Chloride 99 L (101-111) mmol/L Carbon Dioxide 27 (22-32) mmol/L Anion Gap 5 (2-11) mmol/L BUN 25 H (6-24) mg/dL Creatinine 1.54 H (0.51-0.95) mg/dL Est GFR ( Amer) 41.8 (>60) Est GFR (Non-Af Amer) 32.5 (>60) BUN/Creatinine Ratio 16.2 (8-20) Glucose 92 (70-100) mg/dL Calcium 8.5 L (8.6-10.3) mg/dL Urine Color Urine Appearance Urine pH (5-9) Ur Specific [place] (1.010-1.030) Urine Protein (Negative) Urine Ketones (Negative) Urine Blood (Negative) Urine Nitrate (Negative) Urine Bilirubin (Negative) Urine Urobilinogen (Negative) Ur Leukocyte Esterase (Negative) Urine WBC (Auto) (Absent) Urine RBC (Auto) (Absent) Ur Squamous Epith Cells (Absent) Urine Bacteria (Absent) Urine Glucose (Negative) Result Diagrams: 02/23/17 05:54 02/23/17 05:54 Lab Statement: Any lab studies that have been ordered have been reviewed, and results considered in the medical decision making process. - Radiology Hip XR Xray Interpretation: Positive (See Comments) - Right hip replacement with no evidence of periprosthetic fracture. Left hip demonstrates no fracture. Question of right inferior pubic ramus fracture which is nondisplaced. ED Physician has reviewed this report and agrees. Radiology Interpretation Completed By: Radiologist L-Spine XR Xray Interpretation: No Acute Changes - L-Spine XR shows 1. OSTEOPENIA. 2. DEGENERATIVE DISC DISEASE AND OSTEOARTHRITIS. 3. NO ACUTE OSSEOUS INJURY. IF SYMPTOMS PERSIST, RECOMMEND REPEAT IMAGING. ED Physician has reviewed this report and agrees. Radiology Interpretation Completed By: Radiologist - EKG 13:38 Cardiac Rate: NL - 60 BPM EKG Interpretation: Biphasic T-Waves V3-V6. No STEMI. Re-Evaluation - Re-Evaluation First Eval Re-Evaluation Time: 13:50 Change: Unchanged Comment: After pain medication, I further examined the patient. She is still in too much pain to fully examine the hip. Back Pain Course/Dx - Course Assessment/Plan: The pt is a 81 y/o F presenting to the ED c/o pains in her lower back, bilateral lower extremity, and right arm s/p a fall that occurred today at 10:00. She says that she was walking down the stairs when she missed a step and she fell on her right side and her back. Pt denies CERON and neck pain. Bloodwork shows RBC 3.87, Creatinine 1.67. UA was negative. In the ED she was given morphine and Zofran. EKG shows biphasic T-waves with no STEMI. Hip XR shows Right hip replacement with no evidence of periprosthetic fracture. Left hip demonstrates no fracture. Question of right inferior pubic ramus fracture which is nondisplaced. L-Spine XR shows 1. OSTEOPENIA. 2. DEGENERATIVE DISC DISEASE AND OSTEOARTHRITIS. 3. NO ACUTE OSSEOUS INJURY. IF SYMPTOMS PERSIST, RECOMMEND REPEAT IMAGING. ED Physician has reviewed this report and agrees. I consulted with Mario Alberto Brown NP, who admits the patient to [facility] at 15:36. - Diagnoses Provider Diagnoses: Pubic ramus fracture - Provider Notifications Discussed Care Of Patient With: Mario Alberto Brown Time Discussed With Above Provider: 15:36 Instructed by Provider To: Other - I consulted with Mario Alberto Brown NP, who admits the patient to [facility]. Discharge - Discharge Plan Condition: Fair Disposition: ADMITTED TO [facility] documentation as recorded by the Renetta rajan Thomas accurately reflects the service I personally performed and the decisions made by me, John Thomas MD.
[2017-02-23] MEDS: Lidocaine PATCH 5%* 1 PATCH TRANSDERM SCH (10:33)
--- NOTE | 2017-02-23 13:13 | PN ---
Subjective Date of Service: 02/23/17 Interval History: Ms. Dowd reports no complaint other than pain to her right hip when she moves. She is reluctant to get out of bed due to the pain. She denies chest pain, SOB, nausea, or abdominal pain. Family History: Unchanged from Admission Social History: Unchanged from Admission Past Medical History: Unchanged from Admission Objective Active Medications: Acetaminophen (Tylenol Tab*) 650 mg PO Q4H PRN Hydrocodone Bitart/Acetaminophen ([place] 5-325 Tab*) 1 tab PO Q4H PRN Amiodarone HCl (Cordarone Tab*) 200 mg PO DAILY [facility] Atorvastatin Calcium (Lipitor*) 10 mg PO SUTUTHSA [facility] Gabapentin (Neurontin Cap(*)) 200 mg PO TID [facility] Gabapentin (Neurontin Cap(*)) 200 mg PO BID [facility] Heparin Sodium (Porcine) (Heparin Vial(*)) 5,000 units SUBCUT BID [facility] Levothyroxine Sodium (Synthroid Tab*) 75 mcg PO DAILY@0600 [facility] Lidocaine (Lidoderm 5% Patch*) 1 patch TRANSDERM DAILY [facility] Melatonin (Melatonin (Nf)) 3 mg PO BEDTIME [facility] Metoprolol Tartrate (Lopressor Tab*) 50 mg PO BID [facility] Morphine Sulfate (Morphine Inj (Syringe)*) 2 mg IV Q4H PRN Ondansetron HCl (Zofran Inj*) 4 mg IV Q6H PRN Pharmacy Profile Note (Lidocaine Patch Remove*) 1 note N/A 2100 [facility] Senna (Senokot Tab*) 2 tab PO BEDTIME PRN Vital Signs 02/22/17 02/22/17 02/22/17 15:04 15:15 15:17 Temperature 97.9 F 97.9 F Pulse Rate 60 60 Respiratory 16 16 16 Rate Blood Pressure 104/38 96/35 (mmHg) O2 Sat by Pulse 95 95 Oximetry 02/22/17 02/22/17 02/22/17 15:30 18:19 20:18 Temperature Pulse Rate Respiratory 16 18 Rate Blood Pressure 110/60 (mmHg) O2 Sat by Pulse Oximetry 02/22/17 02/22/17 02/22/17 20:19 20:42 21:15 Temperature 98.8 F Pulse Rate 62 Respiratory 18 21 18 Rate Blood Pressure 106/45 (mmHg) O2 Sat by Pulse 94 Oximetry 02/22/17 02/22/17 02/23/17 23:15 23:28 02:03 Temperature 98.0 F Pulse Rate 64 Respiratory 18 16 Rate Blood Pressure 102/39 (mmHg) O2 Sat by Pulse 91 91 Oximetry 02/23/17 02/23/17 02/23/17 03:32 05:32 07:29 Temperature 98.2 F 98.5 F Pulse Rate 66 66 Respiratory 16 18 18 Rate Blood Pressure 95/36 100/48 (mmHg) O2 Sat by Pulse 94 93 Oximetry 02/23/17 02/23/17 02/23/17 07:32 08:22 10:22 Temperature Pulse Rate Respiratory 16 16 17 Rate Blood Pressure (mmHg) O2 Sat by Pulse Oximetry 02/23/17 02/23/17 11:51 12:06 Temperature 98.3 F Pulse Rate 64 Respiratory 18 Rate Blood Pressure 104/40 (mmHg) O2 Sat by Pulse 93 91 Oximetry Oxygen Devices in Use Now: None Appearance: Female lying in bed in NAD Eyes: No Scleral Icterus Ears/Nose/Mouth/Throat: Mucous Membranes Moist Neck: Trachea Midline Respiratory: Symmetrical Chest Expansion and Respiratory Effort, Clear to Auscultation Cardiovascular: NL Sounds; No Murmurs; No JVD, No Edema Abdominal: NL Sounds; No Tenderness; No Distention Lymphatic: No Cervical Adenopathy Extremities: No Edema Skin: No Rash or Ulcers Neurological: Alert and Oriented x 3, NL Muscle Strength and Tone Nutrition: Taking PO's Result Diagrams: 02/23/17 05:54 02/23/17 05:54 Additional Lab and Data: Lab Results 02/21/17 02/21/17 02/21/17 Range/Units 12:45 12:45 13:45 WBC 9.8 (3.5-10.8) 10^3/ul RBC 3.87 L (4.0-5.4) 10^6/ul Hgb 12.3 (12.0-16.0) g/dl Hct 37 (35-47) % MCV 95 (80-97) fL MCH 32 H (27-31) pg MCHC 34 (31-36) g/dl RDW 14 (10.5-15) % Plt Count 123 L (150-450) 10^3/ul MPV 10 (7.4-10.4) um3 Neut % (Auto) (38-83) % Lymph % (Auto) (25-47) % [place] % (Auto) (1-9) % Eos % (Auto) (0-6) % Baso % (Auto) (0-2) % Absolute Neuts (auto) (1.5-7.7) 10^3/ul Absolute Lymphs (auto) (1.0-4.8) 10^3/ul Absolute Monos (auto) (0-0.8) 10^3/ul Absolute Eos (auto) (0-0.6) 10^3/ul Absolute Basos (auto) (0-0.2) 10^3/ul Absolute Nucleated RBC 10^3/ul Nucleated RBC % Hem Pathologist Commnt INR (Anticoag Therapy) (0.89-1.11) Sodium 135 (133-145) mmol/L Potassium 4.4 (3.5-5.0) mmol/L Chloride 102 (101-111) mmol/L Carbon Dioxide 28 (22-32) mmol/L Anion Gap 5 (2-11) mmol/L BUN 25 H (6-24) mg/dL Creatinine 1.67 H (0.51-0.95) mg/dL Est GFR ( Amer) 38.1 (>60) Est GFR (Non-Af Amer) 29.6 (>60) BUN/Creatinine Ratio 15.0 (8-20) Glucose 111 H (70-100) mg/dL Calcium 9.0 (8.6-10.3) mg/dL Urine Color Yellow Urine Appearance Clear Urine pH 5.0 (5-9) Ur Specific [place] 1.017 (1.010-1.030) Urine Protein Negative (Negative) Urine Ketones Negative (Negative) Urine Blood Negative (Negative) Urine Nitrate Negative (Negative) Urine Bilirubin Negative (Negative) Urine Urobilinogen Negative (Negative) Ur Leukocyte Esterase Negative (Negative) Urine WBC (Auto) Trace(0-5/hpf) (Absent) Urine RBC (Auto) Trace(0-2/hpf) (Absent) Ur Squamous Epith Cells Present H (Absent) Urine Bacteria Absent (Absent) Urine Glucose Negative (Negative) 02/22/17 02/22/17 02/22/17 Range/Units 06:34 06:34 06:34 WBC 6.3 (3.5-10.8) 10^3/ul RBC 3.43 L (4.0-5.4) 10^6/ul Hgb 10.9 L (12.0-16.0) g/dl Hct 32 L (35-47) % MCV 94 (80-97) fL MCH 32 H (27-31) pg MCHC 34 (31-36) g/dl RDW 14 (10.5-15) % Plt Count 95 L (150-450) 10^3/ul MPV 10 (7.4-10.4) um3 Neut % (Auto) 64.0 (38-83) % Lymph % (Auto) 21.0 L (25-47) % [place] % (Auto) 13.5 H (1-9) % Eos % (Auto) 0.7 (0-6) % Baso % (Auto) 0.8 (0-2) % Absolute Neuts (auto) 4.0 (1.5-7.7) 10^3/ul Absolute Lymphs (auto) 1.3 (1.0-4.8) 10^3/ul Absolute Monos (auto) 0.8 (0-0.8) 10^3/ul Absolute Eos (auto) 0 (0-0.6) 10^3/ul Absolute Basos (auto) 0.1 (0-0.2) 10^3/ul Absolute Nucleated RBC 0 10^3/ul Nucleated RBC % 0.1 Hem Pathologist Commnt INR (Anticoag Therapy) 1.00 (0.89-1.11) Sodium 131 L (133-145) mmol/L Potassium 4.4 (3.5-5.0) mmol/L Chloride 99 L (101-111) mmol/L Carbon Dioxide 27 (22-32) mmol/L Anion Gap 5 (2-11) mmol/L BUN 25 H (6-24) mg/dL Creatinine 1.54 H (0.51-0.95) mg/dL Est GFR ( Amer) 41.8 (>60) Est GFR (Non-Af Amer) 32.5 (>60) BUN/Creatinine Ratio 16.2 (8-20) Glucose 92 (70-100) mg/dL Calcium 8.5 L (8.6-10.3) mg/dL Urine Color Urine Appearance Urine pH (5-9) Ur Specific [place] (1.010-1.030) Urine Protein (Negative) Urine Ketones (Negative) Urine Blood (Negative) Urine Nitrate (Negative) Urine Bilirubin (Negative) Urine Urobilinogen (Negative) Ur Leukocyte Esterase (Negative) Urine WBC (Auto) (Absent) Urine RBC (Auto) (Absent) Ur Squamous Epith Cells (Absent) Urine Bacteria (Absent) Urine Glucose (Negative) Diagnostic Imaging: CT Pelvis IMPRESSION: Nondisplaced fracture right inferior pubic ramus. Right hip prosthesis is in place. Assess/Plan/Problems-Billing Assessment: Ms. Dowd is a 81 yo female with a PMH of atrial fibrillation, tachy-inez syndrome s/p pacemaker, hypothyroidism, aortic stenosis, HLD, tremors, and pericardial effusion s/p pericardiocentesis who presented to the hospital on after a fall and was found to have a pubic rami fracture. - Patient Problems (1) Fracture of pubic ramus Comment: - CT pelvis shows nondisplaced fracture right inferior pubic ramus. - Have placed call to Dr Jefferson to discuss case and verify treatment plan and follow up. - Nonsurgical management - cont pain management, PT/OT. - PMRU vs subacute rehab will be needed. - Increased pain meds to promote mobility. (2) Atrial fibrillation Comment: - Currently NSR. - Continue metoprolol, amiodarone. - Patient no longer on warfarin, secondary to hx of bloody pericardial effusion. (3) Essential tremor Comment: - Pt follows with Dr. Davis as an outpatient. - Pt stopped her primidone, secondary to adverse effects. - Continue gabapentin; pt is to continue BID dosing and start TID dosing on 02/24. (4) HLD (hyperlipidemia) Comment: - Continue statin. (5) Aortic stenosis Current Visit: No Comment: - Moderate to severe, asymptomatic. - Continue outpatient f/u with Dr. Espino. (6) Hypothyroid Comment: - Continue levothyroxine. (7) DVT prophylaxis Comment: - SQ heparin BID with SCDS due to history of hemorrhagic effusion. (8) Full code status Status and Disposition: Inpatient. Anticipate [facility] vs PMRU.
[2017-02-23] MEDS ORDERED: Morphine INJ* 4 MG/ML 1 ML CARPUJECT IV PRN (13:33)
[2017-02-23] MEDS: Polyethylene Glycol 3350* 17 GM PACKET PO PRN (15:20)
[2017-02-23] MEDS: Docusate CAP* 100 MG PO PRN (15:20)
[2017-02-23] MEDS: Atorvastatin* 10 MG TAB PO SCH (16:17)
[2017-02-23] MEDS: CMCS: Melatonin (NF) 3 MG TAB PO SCH (21:26)
[2017-02-23] MEDS: Lidocaine Patch REMOVE* 1 NOTE MISC SCH (21:30)
[2017-02-24] MEDS: Levothyroxine TAB* 75 MCG TAB PO SCH (05:32)
[2017-02-24 07:40] LABS: Comments Flag Yes; Hematocrit 30 % (35-47); Hemoglobin 10.1 g/dl (12.0-16.0)
[2017-02-24] MEDS: Metoprolol Tartrate TAB* 50 mg PO SCH ×2 (08:35→21:38)
[2017-02-24] MEDS: Gabapentin CAP(*) 100 MG PO SCH ×3 (08:35→21:38)
[2017-02-24] MEDS: Amiodarone TAB* 200 MG PO SCH (08:36)
[2017-02-24] MEDS: HYDROcodone/ACETAMIN 5-325 MG* 1 TAB PO PRN ×4 (08:40→21:37)
[2017-02-24] MEDS: Lidocaine PATCH 5%* 1 PATCH TRANSDERM SCH (08:41)
[2017-02-24] MEDS: Heparin VIAL(*) 5000 UNITS/ML VIAL (FIVE THOUSAND) SUBCUT SCH ×2 (08:41→21:40)
[2017-02-24] MEDS: Polyethylene Glycol 3350* 17 GM PACKET PO PRN (11:29)
--- NOTE | 2017-02-24 15:09 | PN ---
Subjective Date of Service: 02/24/17 Interval History: Ms. Dowd reports doing well today. She was able to get out of bed to the chair for several hours today. She continues to have some pain in her hip but it does seem to be a bit better. She denies other complaint including chest pain, SOB, nausea, or abdominal pain. Family History: Unchanged from Admission Social History: Unchanged from Admission Past Medical History: Unchanged from Admission Objective Active Medications: Acetaminophen (Tylenol Tab*) 650 mg PO Q4H PRN Hydrocodone Bitart/Acetaminophen ([place] 5-325 Tab*) 1 tab PO Q4H PRN Hydrocodone Bitart/Acetaminophen ([place] 5-325 Tab*) 2 tab PO Q4H PRN Amiodarone HCl (Cordarone Tab*) 200 mg PO DAILY [facility] Atorvastatin Calcium (Lipitor*) 10 mg PO SUTUTHSA [facility] Docusate Sodium (Colace Cap*) 100 mg PO DAILY [facility] Gabapentin (Neurontin Cap(*)) 200 mg PO TID [facility] Heparin Sodium (Porcine) (Heparin Vial(*)) 5,000 units SUBCUT BID [facility] Levothyroxine Sodium (Synthroid Tab*) 75 mcg PO DAILY@0600 [facility] Lidocaine (Lidoderm 5% Patch*) 1 patch TRANSDERM DAILY [facility] Melatonin (Melatonin (Nf)) 3 mg PO BEDTIME [facility] Metoprolol Tartrate (Lopressor Tab*) 50 mg PO BID [facility] Morphine Sulfate (Morphine Inj (Syringe)*) 4 mg IV Q4H PRN Ondansetron HCl (Zofran Inj*) 4 mg IV Q6H PRN Pharmacy Profile Note (Lidocaine Patch Remove*) 1 note N/A 2100 [facility] Polyethylene Glycol/Electrolytes (Miralax*) 17 gm PO DAILY PRN Senna (Senokot Tab*) 2 tab PO BEDTIME PRN Vital Signs: Temp Pulse Resp BP Pulse Ox 98.2 F 144 16 148/106 94 02/24/17 15:37 02/24/17 15:37 02/24/17 15:37 02/24/17 15:37 02/24/17 15:37 Oxygen Devices in Use Now: None Appearance: Female lying in bed in NAD Eyes: No Scleral Icterus Ears/Nose/Mouth/Throat: Mucous Membranes Moist Neck: Trachea Midline Respiratory: Symmetrical Chest Expansion and Respiratory Effort, Clear to Auscultation Cardiovascular: NL Sounds; No Murmurs; No JVD, No Edema Abdominal: NL Sounds; No Tenderness; No Distention Lymphatic: No Cervical Adenopathy Extremities: No Edema Skin: No Rash or Ulcers Neurological: Alert and Oriented x 3, NL Muscle Strength and Tone Nutrition: Taking PO's Result Diagrams: 02/24/17 07:09 02/23/17 05:54 Additional Lab and Data: Lab Results 02/21/17 02/21/17 02/21/17 Range/Units 12:45 12:45 13:45 WBC 9.8 (3.5-10.8) 10^3/ul RBC 3.87 L (4.0-5.4) 10^6/ul Hgb 12.3 (12.0-16.0) g/dl Hct 37 (35-47) % MCV 95 (80-97) fL MCH 32 H (27-31) pg MCHC 34 (31-36) g/dl RDW 14 (10.5-15) % Plt Count 123 L (150-450) 10^3/ul MPV 10 (7.4-10.4) um3 Neut % (Auto) (38-83) % Lymph % (Auto) (25-47) % [place] % (Auto) (1-9) % Eos % (Auto) (0-6) % Baso % (Auto) (0-2) % Absolute Neuts (auto) (1.5-7.7) 10^3/ul Absolute Lymphs (auto) (1.0-4.8) 10^3/ul Absolute Monos (auto) (0-0.8) 10^3/ul Absolute Eos (auto) (0-0.6) 10^3/ul Absolute Basos (auto) (0-0.2) 10^3/ul Absolute Nucleated RBC 10^3/ul Nucleated RBC % Hem Pathologist Commnt INR (Anticoag Therapy) (0.89-1.11) Sodium 135 (133-145) mmol/L Potassium 4.4 (3.5-5.0) mmol/L Chloride 102 (101-111) mmol/L Carbon Dioxide 28 (22-32) mmol/L Anion Gap 5 (2-11) mmol/L BUN 25 H (6-24) mg/dL Creatinine 1.67 H (0.51-0.95) mg/dL Est GFR ( Amer) 38.1 (>60) Est GFR (Non-Af Amer) 29.6 (>60) BUN/Creatinine Ratio 15.0 (8-20) Glucose 111 H (70-100) mg/dL Calcium 9.0 (8.6-10.3) mg/dL Urine Color Yellow Urine Appearance Clear Urine pH 5.0 (5-9) Ur Specific [place] 1.017 (1.010-1.030) Urine Protein Negative (Negative) Urine Ketones Negative (Negative) Urine Blood Negative (Negative) Urine Nitrate Negative (Negative) Urine Bilirubin Negative (Negative) Urine Urobilinogen Negative (Negative) Ur Leukocyte Esterase Negative (Negative) Urine WBC (Auto) Trace(0-5/hpf) (Absent) Urine RBC (Auto) Trace(0-2/hpf) (Absent) Ur Squamous Epith Cells Present H (Absent) Urine Bacteria Absent (Absent) Urine Glucose Negative (Negative) 02/22/17 02/22/17 02/22/17 Range/Units 06:34 06:34 06:34 WBC 6.3 (3.5-10.8) 10^3/ul RBC 3.43 L (4.0-5.4) 10^6/ul Hgb 10.9 L (12.0-16.0) g/dl Hct 32 L (35-47) % MCV 94 (80-97) fL MCH 32 H (27-31) pg MCHC 34 (31-36) g/dl RDW 14 (10.5-15) % Plt Count 95 L (150-450) 10^3/ul MPV 10 (7.4-10.4) um3 Neut % (Auto) 64.0 (38-83) % Lymph % (Auto) 21.0 L (25-47) % [place] % (Auto) 13.5 H (1-9) % Eos % (Auto) 0.7 (0-6) % Baso % (Auto) 0.8 (0-2) % Absolute Neuts (auto) 4.0 (1.5-7.7) 10^3/ul Absolute Lymphs (auto) 1.3 (1.0-4.8) 10^3/ul Absolute Monos (auto) 0.8 (0-0.8) 10^3/ul Absolute Eos (auto) 0 (0-0.6) 10^3/ul Absolute Basos (auto) 0.1 (0-0.2) 10^3/ul Absolute Nucleated RBC 0 10^3/ul Nucleated RBC % 0.1 Hem Pathologist Commnt INR (Anticoag Therapy) 1.00 (0.89-1.11) Sodium 131 L (133-145) mmol/L Potassium 4.4 (3.5-5.0) mmol/L Chloride 99 L (101-111) mmol/L Carbon Dioxide 27 (22-32) mmol/L Anion Gap 5 (2-11) mmol/L BUN 25 H (6-24) mg/dL Creatinine 1.54 H (0.51-0.95) mg/dL Est GFR ( Amer) 41.8 (>60) Est GFR (Non-Af Amer) 32.5 (>60) BUN/Creatinine Ratio 16.2 (8-20) Glucose 92 (70-100) mg/dL Calcium 8.5 L (8.6-10.3) mg/dL Urine Color Urine Appearance Urine pH (5-9) Ur Specific [place] (1.010-1.030) Urine Protein (Negative) Urine Ketones (Negative) Urine Blood (Negative) Urine Nitrate (Negative) Urine Bilirubin (Negative) Urine Urobilinogen (Negative) Ur Leukocyte Esterase (Negative) Urine WBC (Auto) (Absent) Urine RBC (Auto) (Absent) Ur Squamous Epith Cells (Absent) Urine Bacteria (Absent) Urine Glucose (Negative) Diagnostic Imaging: CT Pelvis IMPRESSION: Nondisplaced fracture right inferior pubic ramus. Right hip prosthesis is in place. Assess/Plan/Problems-Billing Assessment: Ms. Dowd is a 81 yo female with a PMH of atrial fibrillation, tachy-inez syndrome s/p pacemaker, hypothyroidism, aortic stenosis, HLD, tremors, and pericardial effusion s/p pericardiocentesis who presented to the hospital on after a fall and was found to have a pubic rami fracture. - Patient Problems (1) Fracture of pubic ramus Comment: - Mobility improving very slowly. - CT pelvis shows nondisplaced fracture right inferior pubic ramus. - Nonsurgical management - cont pain management, PT/OT. - PMRU vs subacute rehab will be needed. - Increased pain meds to promote mobility. (2) Atrial fibrillation Comment: - Currently NSR. - Continue metoprolol, amiodarone. - Patient no longer on warfarin, secondary to hx of bloody pericardial effusion. (3) Essential tremor Comment: - Pt follows with Dr. Davis as an outpatient. - Pt stopped her primidone, secondary to adverse effects. - Continue gabapentin; pt is to continue BID dosing and start TID dosing on 02/24. (4) HLD (hyperlipidemia) Comment: - Continue statin. (5) Aortic stenosis Current Visit: No Comment: - Moderate to severe, asymptomatic. - Continue outpatient f/u with Dr. Espino. (6) Hypothyroid Comment: - Continue levothyroxine. (7) DVT prophylaxis Comment: - SQ heparin BID with SCDS due to history of hemorrhagic effusion. (8) Full code status Status and Disposition: Inpatient. Anticipate [facility] vs PMRU.
[2017-02-24] MEDS: CMCS: Melatonin (NF) 3 MG TAB PO SCH (21:39)
[2017-02-24] MEDS: Lidocaine Patch REMOVE* 1 NOTE MISC SCH (21:52)
[2017-02-25] MEDS: Levothyroxine TAB* 75 MCG TAB PO SCH (06:20)
[2017-02-25] MEDS: HYDROcodone/ACETAMIN 5-325 MG* 1 TAB PO PRN ×3 (06:21→21:37)
[2017-02-25 07:42] LABS: Hematocrit 30 % (35-47); Hemoglobin 10.3 g/dl (12.0-16.0); Mean Corpuscular HGB Conc 34 g/dl (31-36); Mean Corpuscular Hemoglobin 32 pg (27-31); Mean Corpuscular Volume 93 fL (80-97); Mean Platelet Volume 11 um3 (7.4-10.4); Red Blood Count 3.22 10^6/ul (4.0-5.4); Red Cell Distribution Width 15 % (10.5-15); White Blood Count 6.2 10^3/ul (3.5-10.8)
[2017-02-25] MEDS: Polyethylene Glycol 3350* 17 GM PACKET PO PRN (09:10)
[2017-02-25] MEDS: Lidocaine PATCH 5%* 1 PATCH TRANSDERM SCH (09:10)
[2017-02-25] MEDS: Heparin VIAL(*) 5000 UNITS/ML VIAL (FIVE THOUSAND) SUBCUT SCH ×2 (09:11→22:06)
[2017-02-25] MEDS: Gabapentin CAP(*) 100 MG PO SCH ×3 (09:12→22:06)
[2017-02-25] MEDS: Acetaminophen TAB* 325 MG PO PRN (09:12)
[2017-02-25] MEDS: Metoprolol Tartrate TAB* 50 mg PO SCH ×2 (09:12→22:05)
[2017-02-25] MEDS: Docusate CAP* 100 MG PO PRN ×2 (09:12→22:32)
[2017-02-25] MEDS: Senna TAB PO PRN ×2 (09:12→22:29)
[2017-02-25] MEDS: Amiodarone TAB* 200 MG PO SCH (09:12)
--- NOTE | 2017-02-25 13:33 | PN ---
Subjective Date of Service: 02/25/17 Interval History: Ms. Dowd states that she feels well today. She sat up in the chair for about an hour today but did continue to have significant right hip pain. She denies other complaint including chest pain, SOB, nausea, or abdominal pain. Family History: Unchanged from Admission Social History: Unchanged from Admission Past Medical History: Unchanged from Admission Objective Active Medications: Acetaminophen (Tylenol Tab*) 650 mg PO Q4H PRN Hydrocodone Bitart/Acetaminophen ([place] 5-325 Tab*) 1 tab PO Q4H PRN Hydrocodone Bitart/Acetaminophen ([place] 5-325 Tab*) 2 tab PO Q4H PRN Amiodarone HCl (Cordarone Tab*) 200 mg PO DAILY [facility] Atorvastatin Calcium (Lipitor*) 10 mg PO S[place]SA [facility] Docusate Sodium (Colace Cap*) 100 mg PO DAILY [facility] Gabapentin (Neurontin Cap(*)) 200 mg PO TID [facility] Heparin Sodium (Porcine) (Heparin Vial(*)) 5,000 units SUBCUT BID [facility] Levothyroxine Sodium (Synthroid Tab*) 75 mcg PO DAILY@0600 [facility] Lidocaine (Lidoderm 5% Patch*) 1 patch TRANSDERM DAILY [facility] Melatonin (Melatonin (Nf)) 3 mg PO BEDTIME [facility] Metoprolol Tartrate (Lopressor Tab*) 50 mg PO BID [facility] Morphine Sulfate (Morphine Inj (Syringe)*) 4 mg IV Q4H PRN Ondansetron HCl (Zofran Inj*) 4 mg IV Q6H PRN Pharmacy Profile Note (Lidocaine Patch Remove*) 1 note N/A 2100 [facility] Polyethylene Glycol/Electrolytes (Miralax*) 17 gm PO DAILY PRN Senna (Senokot Tab*) 2 tab PO BEDTIME PRN Vital Signs: Temp Pulse Resp BP Pulse Ox 98.0 F 63 18 124/46 97 02/25/17 12:52 02/25/17 12:52 02/25/17 11:12 02/25/17 12:52 02/25/17 12:52 Oxygen Devices in Use Now: None Appearance: Female lying in bed in NAD Eyes: No Scleral Icterus Ears/Nose/Mouth/Throat: Mucous Membranes Moist Neck: Trachea Midline Respiratory: Symmetrical Chest Expansion and Respiratory Effort, Clear to Auscultation Cardiovascular: NL Sounds; No Murmurs; No JVD, No Edema Abdominal: NL Sounds; No Tenderness; No Distention Lymphatic: No Cervical Adenopathy Extremities: No Edema Skin: No Rash or Ulcers Neurological: Alert and Oriented x 3, NL Muscle Strength and Tone Nutrition: Taking PO's Result Diagrams: 02/25/17 06:49 02/23/17 05:54 Additional Lab and Data: . Diagnostic Imaging: CT Pelvis IMPRESSION: Nondisplaced fracture right inferior pubic ramus. Right hip prosthesis is in place. Assess/Plan/Problems-Billing Assessment: Ms. Dowd is a 81 yo female with a PMH of atrial fibrillation, tachy-inez syndrome s/p pacemaker, hypothyroidism, aortic stenosis, HLD, tremors, and pericardial effusion s/p pericardiocentesis who presented to the hospital on after a fall and was found to have a pubic rami fracture. - Patient Problems (1) Fracture of pubic ramus Comment: - Mobility improving very slowly. - CT pelvis shows nondisplaced fracture right inferior pubic ramus. - Nonsurgical management - cont pain management, PT/OT. - Subacute rehab will be needed. - Increased pain meds to promote mobility. (2) Anemia Comment: - Hgb stable at 10. - No evidence of signifiant bruising or occult bleeding. (3) Atrial fibrillation Comment: - Currently NSR. - Continue metoprolol, amiodarone. - Patient no longer on warfarin, secondary to hx of bloody pericardial effusion. (4) Essential tremor Comment: - Pt follows with Dr. Davis as an outpatient. - Pt stopped her primidone, secondary to adverse effects. - Continue gabapentin; pt is to continue BID dosing and start TID dosing on 02/24. (5) HLD (hyperlipidemia) Comment: - Continue statin. (6) Aortic stenosis Current Visit: No Comment: - Moderate to severe, asymptomatic. - Continue outpatient f/u with Dr. Espino. (7) Hypothyroid Comment: - Continue levothyroxine. (8) DVT prophylaxis Comment: - SQ heparin BID with SCDS due to history of hemorrhagic effusion. (9) Full code status Status and Disposition: Inpatient. Anticipate discharge to subacute rehab at [facility].
[2017-02-25] MEDS: Atorvastatin* 10 MG TAB PO SCH (16:30)
[2017-02-25] MEDS: CMCS: Melatonin (NF) 3 MG TAB PO SCH (22:05)
[2017-02-25] MEDS: Lidocaine Patch REMOVE* 1 NOTE MISC SCH (22:10)
[2017-02-26] MEDS: HYDROcodone/ACETAMIN 5-325 MG* 1 TAB PO PRN ×3 (03:36→20:40)
[2017-02-26] MEDS: Levothyroxine TAB* 75 MCG TAB PO SCH (05:36)
--- NOTE | 2017-02-26 07:53 | PN ---
Subjective Date of Service: 02/26/17 Interval History: Ms. Dowd states that she is feeling well other than intermittent pain with movement to her right hip. She is worried about constipation and thinks that she may not have moved her bowels since Monday last week. She specifically denies chest pain, SOB, nausea, or abdominal pain. Family History: Unchanged from Admission Social History: Unchanged from Admission Past Medical History: Unchanged from Admission Objective Active Medications: Acetaminophen (Tylenol Tab*) 650 mg PO Q4H PRN Hydrocodone Bitart/Acetaminophen ([place] 5-325 Tab*) 1 tab PO Q4H PRN Hydrocodone Bitart/Acetaminophen ([place] 5-325 Tab*) 2 tab PO Q4H PRN Amiodarone HCl (Cordarone Tab*) 200 mg PO DAILY [facility] Atorvastatin Calcium (Lipitor*) 10 mg PO Su[place]@1600 [facility] Docusate Sodium (Colace Cap*) 100 mg PO DAILY PRN Gabapentin (Neurontin Cap(*)) 200 mg PO TID [facility] Heparin Sodium (Porcine) (Heparin Vial(*)) 5,000 units SUBCUT BID [facility] Levothyroxine Sodium (Synthroid Tab*) 75 mcg PO DAILY@0600 [facility] Lidocaine (Lidoderm 5% Patch*) 1 patch TRANSDERM DAILY [facility] Melatonin (Melatonin (Nf)) 3 mg PO BEDTIME [facility] Metoprolol Tartrate (Lopressor Tab*) 50 mg PO BID [facility] Morphine Sulfate (Morphine Inj (Syringe)*) 4 mg IV Q4H PRN Ondansetron HCl (Zofran Inj*) 4 mg IV Q6H PRN Pharmacy Profile Note (Lidocaine Patch Remove*) 1 note N/A 2100 [facility] Polyethylene Glycol/Electrolytes (Miralax*) 17 gm PO DAILY PRN Senna (Senokot Tab*) 2 tab PO BEDTIME PRN Vital Signs: Temp Pulse Resp BP Pulse Ox 98.0 F 60 16 103/41 97 02/25/17 23:34 02/26/17 04:20 02/26/17 05:36 02/26/17 04:20 02/26/17 04:20 Oxygen Devices in Use Now: None Appearance: Female lying in bed in NAD Eyes: No Scleral Icterus Ears/Nose/Mouth/Throat: Mucous Membranes Moist Neck: Trachea Midline Respiratory: Symmetrical Chest Expansion and Respiratory Effort, Clear to Auscultation Cardiovascular: NL Sounds; No Murmurs; No JVD, No Edema Abdominal: - - Soft, nontender, minimal abd distention noted Lymphatic: No Cervical Adenopathy Extremities: No Edema Skin: No Rash or Ulcers Neurological: Alert and Oriented x 3, NL Muscle Strength and Tone Nutrition: Taking PO's Result Diagrams: 02/25/17 06:49 02/23/17 05:54 Additional Lab and Data: . Diagnostic Imaging: CT Pelvis IMPRESSION: Nondisplaced fracture right inferior pubic ramus. Right hip prosthesis is in place. Assess/Plan/Problems-Billing Assessment: Ms. Dowd is a 81 yo female with a PMH of atrial fibrillation, tachy-inez syndrome s/p pacemaker, hypothyroidism, aortic stenosis, HLD, tremors, and pericardial effusion s/p pericardiocentesis who presented to the hospital on after a fall and was found to have a pubic rami fracture. - Patient Problems (1) Fracture of pubic ramus Comment: - Mobility improving very slowly. - CT pelvis shows nondisplaced fracture right inferior pubic ramus. - Nonsurgical management - cont pain management, PT/OT. - Subacute rehab will be needed. - Increased pain meds to promote mobility. (2) Constipation Comment: - Added dulcolax supp and fleet enema to regimen of senna, colace and miralax. (3) Anemia Comment: - Hgb stable at 10. - No evidence of signifiant bruising or occult bleeding. (4) Atrial fibrillation Comment: - Currently NSR. - Continue metoprolol, amiodarone. - Patient no longer on warfarin, secondary to hx of bloody pericardial effusion. (5) Essential tremor Comment: - Pt follows with Dr. Davis as an outpatient. - Pt stopped her primidone, secondary to adverse effects. Continue gabapentin. (6) HLD (hyperlipidemia) Comment: - Continue statin. (7) Aortic stenosis Current Visit: No Comment: - Moderate to severe, asymptomatic. - Continue outpatient f/u with Dr. Espino. (8) Hypothyroid Comment: - Continue levothyroxine. (9) DVT prophylaxis Comment: - SQ heparin BID with SCDS due to history of hemorrhagic effusion. (10) Full code status Status and Disposition: Inpatient. Anticipate discharge to subacute rehab at [facility].
[2017-02-26] MEDS: Docusate CAP* 100 MG PO PRN ×2 (08:52→20:23)
[2017-02-26] MEDS: Polyethylene Glycol 3350* 17 GM PACKET PO PRN ×2 (08:52→20:20)
[2017-02-26] MEDS: Gabapentin CAP(*) 100 MG PO SCH ×3 (08:52→20:23)
[2017-02-26] MEDS: Metoprolol Tartrate TAB* 50 mg PO SCH ×2 (08:52→20:23)
[2017-02-26] MEDS: Amiodarone TAB* 200 MG PO SCH (08:53)
[2017-02-26] MEDS: Lidocaine PATCH 5%* 1 PATCH TRANSDERM SCH (08:53)
[2017-02-26] MEDS: Heparin VIAL(*) 5000 UNITS/ML VIAL (FIVE THOUSAND) SUBCUT SCH ×2 (08:53→20:24)
[2017-02-26] MEDS ORDERED: Sodium Phosphate ADULT ENEMA* 118 ml bottle PR PRN (12:00)
[2017-02-26] MEDS ORDERED: Bisacodyl SUPP* 10 MG SUPP PR PRN (12:00)
[2017-02-26] MEDS: Atorvastatin* 10 MG TAB PO SCH (16:07)
[2017-02-26] MEDS: Senna TAB PO PRN (20:22)
[2017-02-26] MEDS: CMCS: Melatonin (NF) 3 MG TAB PO SCH (20:24)
[2017-02-26] MEDS: Lidocaine Patch REMOVE* 1 NOTE MISC SCH (21:45)
[2017-02-27] MEDS: HYDROcodone/ACETAMIN 5-325 MG* 1 TAB PO PRN ×3 (04:55→14:02)
[2017-02-27] MEDS: Levothyroxine TAB* 75 MCG TAB PO SCH (04:58)
[2017-02-27 09:35] VITALS: BP 107/44
[2017-02-27] MEDS: Lidocaine PATCH 5%* 1 PATCH TRANSDERM SCH (09:40)
[2017-02-27] MEDS: Heparin VIAL(*) 5000 UNITS/ML VIAL (FIVE THOUSAND) SUBCUT SCH (09:40)
[2017-02-27] MEDS: Gabapentin CAP(*) 100 MG PO SCH ×2 (09:42→14:03)
[2017-02-27] MEDS: Amiodarone TAB* 200 MG PO SCH (09:42)
[2017-02-27] MEDS: Metoprolol Tartrate TAB* 50 mg PO SCH (09:42)
--- NOTE | 2017-02-27 13:04 | DS ---
CC: Dr. Clark * DATE OF ADMISSION: 02/21/2017. DATE OF DISCHARGE: 02/27/2017. ATTENDING PHYSICIAN: Dr. Orin Henderson *(dictation provided by Юлия Moore NP) . PRIMARY DIAGNOSIS: Right inferior pubic ramus fracture. SECONDARY DIAGNOSES: 1. Atrial fibrillation with tachybrady syndrome, status post pacemaker. 2. Hypothyroidism. 3. Aortic stenosis. 4. Hyperlipidemia. 5. Hiatal hernia. 6. Tremors. 7. History of pericardial effusion, status post pericardiocentesis about a year ago. 8. History of melanoma. PAST SURGICAL HISTORY: 1. Pericardiocentesis. 2. Tonsillectomy. 3. Hysterectomy. 4. Laparoscopic cholecystectomy. 5. Bladder repair. 6. Right total hip arthroplasty. MEDICATIONS AT THE TIME OF DISCHARGE: 1. Senna two tabs p.o. at bedtime prn constipation. 2. Levothyroxine 75 mcg p.o. daily. 3. Docusate 100 mg p.o. b.i.d. prn. 4. Cholecalciferol 2000 units p.o. daily. 5. Primidone 50 mg p.o. daily. 6. Metoprolol Tartrate 50 mg p.o. b.i.d. 7. Rosuvastatin 5 mg p.o. Monday, Monday, , Monday. 8. Amiodarone 200 mg p.o. daily. 9. Gabapentin 200 mg p.o. t.i.d. 10. Sodium Phosphate enema one bottle per rectum daily prn constipation. 11. MiraLax 17 gm p.o. daily prn constipation. 12. Lidocaine patch 5% transdermally daily. 13. Hydrocodone with acetaminophen 5/325 mg one to two tabs p.o. q.4 hours prn pain. 14. Colace 100 mg p.o. daily prn. 15. Doculax suppository 10 mg p.r. daily prn. 16. Tylenol 650 mg p.o. q.4 hours prn. HOSPITAL COURSE: Ms. Dowd is a 81-year-old female with a past medical history of atrial fibrillation, tachybrady syndrome, and hyperlipidemia who presented to the hospital on 02/21/2017 after a fall. Please see the dictated history and physical from Mario Alberto Brown NP for complete details. In brief, the patient reported that she had a mechanical fall with no loss of consciousness. In the emergency room, she had a CT scan of the pelvis which showed a left pubic rami fracture. Ms. Dowd was admitted to the hospital. She has been having significant pain with any mobility. She has been seen by Physical Therapy and continues to have need for rehabilitation. She did have some issue with constipation while an inpatient, but we have added a bowel regimen as noted above that can be used as needed. She did have a large bowel movement today. Ms. Dowd is medically stable for discharge to [facility]. DISPOSITION: [facility] in [place]. DIET: Low fat. ACTIVITY: As tolerated. FOLLOW-UP PLAN: 1. Please consider follow-up with Dr. Clark in the next one to two weeks if needed. 2. Please consider follow-up with orthopedic surgeon of your choosing in the next four to six weeks. The patient can see Dr. Nugent at [facility] in [place], but she will be up in [place] and may choose to see an alternate physician. Approximately 60 minutes were spent in the discharge of this patient, more than half that time was spent with her at the bedside reviewing the events leading up to this hospitalization, performing the physical examination and reviewing the plan of care. ЮЛИЯ MOORE NP [id number]/TAL #: [id number] MARINA
--- NOTE | 2017-02-27 15:10 | PN ---
Subjective Date of Service: 02/27/17 Interval History: Ms. Dowd states that she is feeling well today though she continues to have pain with mobility to her right hip. She denies other complaint including chest pain, SOB, nausea, or abdominal pain. Family History: Unchanged from Admission Social History: Unchanged from Admission Past Medical History: Unchanged from Admission Objective Active Medications: Acetaminophen (Tylenol Tab*) 650 mg PO Q4H PRN Hydrocodone Bitart/Acetaminophen ([place] 5-325 Tab*) 1 tab PO Q4H PRN Hydrocodone Bitart/Acetaminophen ([place] 5-325 Tab*) 2 tab PO Q4H PRN Amiodarone HCl (Cordarone Tab*) 200 mg PO DAILY [facility] Atorvastatin Calcium (Lipitor*) 10 mg PO SuTuThSa@1600 [facility] Bisacodyl (Dulcolax Supp*) 10 mg MO DAILY PRN Docusate Sodium (Colace Cap*) 100 mg PO DAILY PRN Gabapentin (Neurontin Cap(*)) 200 mg PO TID [facility] Heparin Sodium (Porcine) (Heparin Vial(*)) 5,000 units SUBCUT BID [facility] Levothyroxine Sodium (Synthroid Tab*) 75 mcg PO DAILY@0600 [facility] Lidocaine (Lidoderm 5% Patch*) 1 patch TRANSDERM DAILY [facility] Melatonin (Melatonin (Nf)) 3 mg PO BEDTIME [facility] Metoprolol Tartrate (Lopressor Tab*) 50 mg PO BID [facility] Morphine Sulfate (Morphine Inj (Syringe)*) 4 mg IV Q4H PRN Ondansetron HCl (Zofran Inj*) 4 mg IV Q6H PRN Pharmacy Profile Note (Lidocaine Patch Remove*) 1 note N/A 2100 [facility] Polyethylene Glycol/Electrolytes (Miralax*) 17 gm PO DAILY PRN Senna (Senokot Tab*) 2 tab PO BEDTIME PRN Sodium Biphosphate/Sodium Phosphate (Fleet Enema*) 1 bottle MO DAILY PRN Vital Signs: Temp Pulse Resp BP Pulse Ox 98.1 F 62 16 107/44 96 02/27/17 09:42 02/27/17 09:42 02/27/17 14:03 02/27/17 09:42 02/27/17 09:42 Oxygen Devices in Use Now: None Appearance: Female lying in bed in NAD Eyes: No Scleral Icterus Ears/Nose/Mouth/Throat: Mucous Membranes Moist Neck: Trachea Midline Respiratory: Symmetrical Chest Expansion and Respiratory Effort, Clear to Auscultation Cardiovascular: NL Sounds; No Murmurs; No JVD, No Edema Abdominal: NL Sounds; No Tenderness; No Distention Lymphatic: No Cervical Adenopathy Extremities: No Edema Skin: No Rash or Ulcers Neurological: Alert and Oriented x 3, NL Muscle Strength and Tone Nutrition: Taking PO's Result Diagrams: 02/25/17 06:49 02/23/17 05:54 Additional Lab and Data: . Diagnostic Imaging: CT Pelvis IMPRESSION: Nondisplaced fracture right inferior pubic ramus. Right hip prosthesis is in place. Assess/Plan/Problems-Billing Assessment: Ms. Dowd is a 81 yo female with a PMH of atrial fibrillation, tachy-inez syndrome s/p pacemaker, hypothyroidism, aortic stenosis, HLD, tremors, and pericardial effusion s/p pericardiocentesis who presented to the hospital on after a fall and was found to have a pubic rami fracture. - Patient Problems (1) Fracture of pubic ramus Comment: - Mobility improving very slowly. - CT pelvis shows nondisplaced fracture right inferior pubic ramus. - Nonsurgical management - cont pain management, PT/OT. - Subacute rehab will be needed. - Increased pain meds to promote mobility. (2) Constipation Comment: - Has had BM. - Added dulcolax supp and fleet enema to regimen of senna, colace and miralax. (3) Anemia Comment: - Hgb stable at 10. - No evidence of signifiant bruising or occult bleeding. (4) Atrial fibrillation Comment: - Currently NSR. - Continue metoprolol, amiodarone. - Patient no longer on warfarin, secondary to hx of bloody pericardial effusion. (5) Essential tremor Comment: - Pt follows with Dr. Davis as an outpatient. - Pt stopped her primidone, secondary to adverse effects. Continue gabapentin. (6) HLD (hyperlipidemia) Comment: - Continue statin. (7) Aortic stenosis Current Visit: No Comment: - Moderate to severe, asymptomatic. - Continue outpatient f/u with Dr. Espino. (8) Hypothyroid Comment: - Continue levothyroxine. (9) DVT prophylaxis Comment: - SQ heparin BID with SCDS due to history of hemorrhagic effusion. (10) Full code status Status and Disposition: Inpatient. Discharge to subacute rehab at [facility].
== END 2017-02-27 15:10 | DRG 536 ==
LOC: ED 10:42 → MED 15:36 → OBSVTOIN 02-22 10:40
PROVIDERS: ADMIT Internal Medicine; ATTEND Internal Medicine
DX: S32.591A Other specified fracture of right pubis, initial encounter for closed fracture (principal); I48.0 Paroxysmal atrial fibrillation; D64.9 Anemia, unspecified; E03.9 Hypothyroidism, unspecified; E78.5 Hyperlipidemia, unspecified; G25.0 Essential tremor; F41.9 Anxiety disorder, unspecified; Z66 Do not resuscitate; K44.9 Diaphragmatic hernia without obstruction or gangrene; K59.00 Constipation, unspecified; M47.9 Spondylosis, unspecified; M85.88 Other specified disorders of bone density and structure, other site; R40.2412 Glasgow coma scale score 13-15, at arrival to emergency department; G43.909 Migraine, unspecified, not intractable, without status migrainosus; K21.9 Gastro-esophageal reflux disease without esophagitis; I35.0 Nonrheumatic aortic (valve) stenosis; W10.9XXA Fall (on) (from) unspecified stairs and steps, initial encounter; Z96.641 Presence of right artificial hip joint; Z85.820 Personal history of malignant melanoma of skin; Z88.2 Allergy status to sulfonamides; Z88.8 Allergy status to other drugs, medicaments and biological substances; Y92.000 Kitchen of unspecified non-institutional (private) residence as the place of occurrence of the external cause; Z95.0 Presence of cardiac pacemaker; Z90.49 Acquired absence of other specified parts of digestive tract; Z90.710 Acquired absence of both cervix and uterus; Z88.0 Allergy status to penicillin; Z82.49 Family history of ischemic heart disease and other diseases of the circulatory system; Z82.3 Family history of stroke; Z83.3 Family history of diabetes mellitus; Z98.42 Cataract extraction status, left eye; Z98.41 Cataract extraction status, right eye; Z86.19 Personal history of other infectious and parasitic diseases
CPT/HCPCS: 36415; 72110; 72192; 73523; 80048; 81003; 85014; 85018; 85025; 85027; 85060; 85610; 90686; 93005; 94760; A9270-GY; G0378; J1170; J1644; J2270; J2405

== ENCOUNTER 2018-07-21 14:29 | Inpatient (IN) | payer MEDICARE ==
--- NOTE | 2018-07-21 15:21 | ED ---
GI/ HPI - HPI Summary HPI Summary: Patient is a 82 y/o F presenting to ED with complaints of "loose" stools. She states that all week she has been having "loose" stools all week and is concerned about dehydration. Patient had been seen about a week ago for constipation, was prescribed medications. She states that she took the medications when she was [place] [facility] [place] and the day afterwards. She states that she did not take any more medications afterwards. PMHx of pacemaker. BP is 93/68. She also notes abdominal cramps and back aches. Daughter, who is present in the room, states that she checked patient's stool today, noting it was more formed but still loose. Per daughter, patient has been concerned about a blockage. On triage, pain is denied, nothing is noted to aggravate/alleviate Sx. Home medications and allergies are reviewed. - History of Current Complaint Chief Complaint: EDAbdPain Time Seen by Provider: 07/21/18 14:46 Stated Complaint: CONSTIPATION Hx Obtained From: Patient Onset/Duration: Started Weeks Ago - one, Still Present Timing: Constant, Lasting Weeks Current Severity: None - on triage, pain denied. Pain Intensity: 0 Associated Signs and Symptoms: Positive: Back Pain - aches, Abdominal Pain - cramps, Other: - loose stools, back aches, abdominal cramps Aggravating Factor(s): Nothing Alleviating Factor(s): Nothing - Additional Pertinent History Primary Care Physician: CRISTIAN - Allergy/Home Medications Allergies/Adverse Reactions: Allergies Allergy/AdvReac Type Severity Reaction Status Date / Time Penicillins Allergy Hives Verified 07/21/18 14:39 Sulfa (Sulfonamide Allergy Difficulty Verified 07/21/18 14:39 Antibiotics) Breathing warfarin Allergy Unknown Verified 07/21/18 14:39 Reaction Details Home Medications: Home Medications DULoxetine CAP* [Cymbalta CAP*] 20 mg PO DAILY 07/21/18 [History Confirmed ] PMH/Surg Hx/FS Hx/Imm Hx Endocrine/Hematology History: Reports: Hx Anticoagulant Therapy - warfarin, Hx Thyroid Disease Denies: Hx Blood Disorders, Hx Blood Transfusions, Hx Bone Marrow Disease, Hx Diabetes, Hx Unexplained Bleeding Cardiovascular History: Reports: Hx Atrial Fibrillation, Hx Auto Implanted Cardiovert Defib, Hx Congestive Heart Failure, Hx Hypercholesterolemia, Hx Hypertension, Hx Pacemaker/ICD, Hx Valvular Heart Disease - aortic valve stenosis, Other Cardiovascular Problems/Disorders - TACHY-MARLEE SYNDROME Respiratory History: Denies: Hx Asthma, Hx Chronic Obstructive Pulmonary Disease (COPD), Other Respiratory Problems/Disorders GI History: Reports: Hx Gastroesophageal Reflux Disease, Hx Hiatal Hernia History: Reports: Other Problems/Disorders - frequency Denies: Hx Dialysis Musculoskeletal History: Reports: Hx Arthritis, Hx Orthopedic Injury - Broken Left index finger Denies: Hx Back Problems, Hx Bursitis, Hx Congenital Bone Abnormalities, Hx Fibromyalgia, Hx Gout, Hx Osteoporosis Sensory History: Reports: Hx Cataracts - removed, Hx Contacts or Glasses, Hx Hearing Problem - Right Pt States "not that bad." Denies: Hx Eye Injury, Hx Glaucoma, Hx Macular Degeneration, Hx Vision Problem, Hx Deafness, Hx Hearing Aid, Other Sensory Impairments Opthamlomology History: Reports: Hx Cataracts - removed, Hx Contacts or Glasses Denies: Hx Eye Injury, Hx Glaucoma, Hx Macular Degeneration, Hx Vision Problem, Other Sensory Impairments Neurological History: Reports: Hx Migraine - very seldom now. Denies: Hx Dementia, Hx Seizures Psychiatric History: Reports: Hx Anxiety - Cancer History Cancer Type, Location and Year: three melanoma moles removed. Most recent in 2014 Hx Chemotherapy: No Hx Radiation Therapy: No - Surgical History Surgery Procedure, Year, and Place: RIGHT HIP REPLACEMENT, pacemaker Hx Anesthesia Reactions: No Infectious Disease History: No Infectious Disease History: Reports: Hx Shingles Denies: Traveled Outside the [place] in Last 30 Days - Family History Known Family History: Positive: Cardiac Disease, Hypertension, Diabetes - Social History Alcohol Use: None Substance Use Type: Reports: None Hx Tobacco Use: No Smoking Status (MU): Never Smoked Tobacco Review of Systems Gastrointestinal: Other - POSITIVE - LOOSE STOOL Positive: Abdominal Pain - "CRAMPS" Musculoskeletal: Other - POSITIVE - BACK ACHES All Other Systems Reviewed And Are Negative: Yes Physical Exam - Summary Physical Exam Summary: VITAL SIGNS: Reviewed. GENERAL: Patient is a well-developed and nourished female who is lying comfortable in the stretcher. Patient is not in any acute respiratory distress. HEAD AND FACE: No signs of trauma. No ecchymosis, hematomas or skull depressions. No sinus tenderness. EYES: PERRLA, EOMI x 2, No injected conjunctiva, no nystagmus. EARS: Hearing grossly intact. Ear canals and tympanic membranes are within normal limits. MOUTH: Oropharynx within normal limits. NECK: Supple, trachea is midline, no adenopathy, no JVD, no carotid bruit, no c- spine tenderness, neck with full ROM. CHEST: Symmetric, no tenderness at palpation LUNGS: Clear to auscultation bilaterally. No wheezing or crackles. CVS: Regular rate and rhythm, S1 and S2 present, no murmurs or gallops appreciated. ABDOMEN: Soft, non-tender. No signs of distention. No rebound no guarding, and no masses palpated. Bowel sounds are normal. EXTREMITIES: FROM in all major joints, no edema, no cyanosis or clubbing. NEURO: Alert and oriented x 3. No acute neurological deficits. Speech is normal and follows commands. SKIN: Dry and warm Triage Information Reviewed: Yes Vital Signs On Initial Exam: Initial Vitals Temp Pulse Resp BP Pulse Ox 97.1 F 88 14 145/59 97 07/21/18 14:34 07/21/18 14:34 07/21/18 14:34 07/21/18 14:34 07/21/18 14:34 Vital Signs Reviewed: Yes Diagnostics - Vital Signs Vital Signs Temp Pulse Resp BP Pulse Ox 07/21/18 14:34 97.1 F 88 14 145/59 97 - Laboratory Result Diagrams: 07/22/18 06:23 07/22/18 06:23 Lab Statement: Any lab studies that have been ordered have been reviewed, and results considered in the medical decision making process. - Radiology abdominal x-ray Radiology Interpretation Completed By: Radiologist Summary of Radiographic Findings: IMPRESSION: NO EVIDENCE FOR ACUTE FINDING. THIS REPORT WAS REVIEWED BY ED PHYSICIAN. Re-Evaluation - Re-Evaluation First Eval Re-Evaluation Time: 18:34 Comment: Admission was discussed with patient and patient's daughter. GIGU Course/Dx - Course Assessment/Plan: Patient is a 82 y/o F presenting to ED with complaints of "loose" stools. She states that all week she has been having "loose" stools all week and is concerned about dehydration. Patient had been seen about a week ago for constipation, was prescribed medications. She states that she took the medications when she was [place] [facility] [place] ago and the day afterwards. She states that she did not take any more medications afterwards. PMHx of pacemaker. BP is 93/68. She also notes abdominal cramps and back aches. Daughter, who is present in the room, states that she checked patient's stool today, noting it was more formed but still loose. Per daughter, patient has been concerned about a blockage. Blood work without any significant abnormality except for sodium 125, creatinine 1.23. Urinalysis negative for UTI. X-ray of the abdomen impression: No evidence for acute finding. At this point I discussed my physical exam and findings with Dr. Rock from the hospital services and he agrees to admit the patient for and acute hyponatremia. Patient is hemodynamically stable alert and oriented 3. - Diagnoses Provider Diagnoses: Acute hyponatremia - Physician Notifications Discussed Care Of Patient With: Tae Rock Time Discussed With Above Provider: 18:29 Instructed by Provider To: Other - Patient's case was discussed with Dr. Rock at 1829, Dr. Rock is agreeable with admission of patient. Discharge - Sign-Out/Discharge Documenting (check all that apply): Patient Departure - admit All imaging exams completed and their final reports reviewed: Yes Patient Received Moderate/Deep Sedation with Procedure: No - NO PROCEDURES DONE - Discharge Plan Condition: Stable Disposition: ADMITTED TO [facility] - Billing Disposition and Condition Condition: STABLE Disposition: Admitted to [facility] - Attestation Statements Document Initiated by Devang: Yes Documenting Scribe: AGNES VORA Provider For Whom Devang is Documenting (Include Credential): VINEET MCCARTY MD Scribe Attestation: I, AGNES VORA , scribed for VINEET MCCARTY MD on 07/22/18 at 1316. Scribe Documentation Reviewed: Yes Provider Attestation: The documentation as recorded by the scribeAGNES accurately reflects the service I personally performed and the decisions made by me, VINEET MCCARTY MD Status of Scribe Document: Viewed
[2018-07-21 15:35] LABS: ABS Basophils 0.1 10^3/ul (0-0.2); ABS Eosinophils 0 10^3/ul (0-0.6); ABS Lymphocytes 1.9 10^3/ul (1.0-4.8); ABS Monocytes 0.7 10^3/ul (0-0.8); ABS Neutrophils 3.2 10^3/ul (1.5-7.7); ABS Nucleated RBC 0 10^3/ul; Eosinophil % 0.5 %; Hematocrit 38 % (35-47); Hemoglobin 13.1 g/dl (12.0-16.0); Lymphocyte % 31.6 %; Mean Corpuscular HGB Conc 34 g/dl (31-36); Mean Corpuscular Hemoglobin 32 pg (27-31); Mean Corpuscular Volume 93 fL (80-97); Mean Platelet Volume 9.3 fL (7.4-10.4); Nucleated Red Blood Cells % 0.1; Platelet Count 175 10^3/ul (150-450); Red Blood Count 4.08 10^6/ul (4.00-5.40); Red Cell Distribution Width 14 % (10.5-15); White Blood Count 5.9 10^3/ul (3.5-10.8)
[2018-07-21 15:52] LABS: Albumin 3.8 g/dL (3.2-5.2); Albumin/Globulin Ratio 1.7 (1-3); BUN/Creatinine Ratio 9.8 (8-20); C Reactive Protein 2.28 mg/L (<8.01); Calcium 8.9 mg/dL (8.6-10.3); EGFR African American 50.8 (>60); Globulin 2.3 g/dL (2-4); Potassium 4.9 mmol/L (3.5-5.0); Total Bilirubin 0.7 mg/dL (0.2-1.0); Total Protein 6.1 g/dL (6.4-8.9)
[2018-07-21] MEDS ORDERED: NS 0.9% 1000 ML** 1,000 ML IV ONE (16:07)
[2018-07-21 16:51] LABS: Urine Appearance Clear; Urine Bilirubin Negative (Negative); Urine Blood Negative (Negative); Urine Color Yellow; Urine Glucose Negative (Negative); Urine Ketones Negative (Negative); Urine Nitrite Negative (Negative); Urine Protein Negative (Negative); Urine Urobilinogen Negative (Negative)
[2018-07-21] MEDS ORDERED: Ondansetron INJ* 2 MG/ML VIAL IV PRN (19:24)
[2018-07-21] MEDS ORDERED: NS 0.9% 1000 ML** 1,000 ML IV SCH (19:30)
[2018-07-21] MEDS: Enoxaparin(*) 30 MG/0.3 ML SYR SUBCUT SCH (21:13)
[2018-07-21] MEDS: ALPRAZolam TAB* 0.25 MG PO SCH (21:20)
[2018-07-21] MEDS: Metoprolol Tartrate TAB* 50 mg PO SCH (21:21)
--- NOTE | 2018-07-21 21:26 | HP ---
CC: Dr. Angelica Clark HISTORY AND PHYSICAL: DATE OF ADMISSION: 07/21/18 PRIMARY CARE PROVIDER: Dr. Angelica Clark. CHIEF COMPLAINT: Diarrhea and weakness. HISTORY OF PRESENT ILLNESS: This is an 82-year-old female with past medical history of hypothyroidism, atrial fibrillation, who for the past week has been having issues with constipation, was seen in the emergency room for similar issues and was sent home with laxatives and enema. Now, the patient comes into the emergency room because last night she had a very bad headache associated with loose bowel movement, about 2 to 3 episodes of loose bowel movements associated with indigestion and gas and abdominal cramps. Abdominal cramps have now resolved; however, she continues to have 2 to 3 episodes of loose bowel movement throughout the day today as well. She feels that she is dehydrated and is having some nausea. She does not have any fevers; however, does have chills. PAST MEDICAL HISTORY: 1. Atrial fibrillation 2. Tachy-inez syndrome, status post pacemaker. 3. Hypothyroidism. 4. Aortic stenosis. 5. Hyperlipidemia. 6. Hiatal hernia. 7. Tremors. 8. Pericardial effusion, status post pericardiocentesis. 9. History of melanoma. PAST SURGICAL HISTORY: Includes: 1. Pericardiocentesis. 2. Cholecystectomy. 3. Hysterectomy. 4. Tonsillectomy. 5. Appendectomy. 6. Bladder repair. 7. Total hip arthroplasty. HOME MEDICATIONS: Include: 1. Zofran 4 mg every 6 hours as needed. 2. Omeprazole 20 mg daily. 3. Centrum Women Silver 1 tab daily 4. Metoprolol tartrate 50 mg twice daily. 5. Synthroid 100 mcg daily. 6. Vitamin D2 2000 units daily. 7. Vitamin B12 one tablet daily. 8. Cranberry extract daily. 9. Amiodarone 200 mg daily. 10. Tylenol 650 mg every 4 hours as needed. 11. Xanax 0.5 mg b.i.d. as needed. 12. Polyethylene glycol 17 g daily as needed. 13. Duloxetine 20 mg daily. ALLERGIES: Include: 1. PENICILLIN which causes hives. 2. SULFA which causes difficulty breathing. 3. WARFARIN. FAMILY HISTORY: Mother: Stroke. Father: Heart disease as well as diabetes. SOCIAL HISTORY: The patient lives at home, has 24-hour aid support. She ambulates with a walker. She does not smoke. No alcohol use. She choses to be DNR. Healthcare proxy is son as well as daughter. The daughter's name is Ita, phone number is [phone]. REVIEW OF SYSTEMS: No fevers, does have chills, no sweats, no chest pain, no shortness of breath, no palpitations. She does have nausea; however, no vomiting. She was having abdominal cramps associated with diarrhea. No shortness of breath, no cough, no sputum production. She does have occasional joint aches and anxiety; however, no recent changes. Full review of systems was done and is otherwise negative. PHYSICAL EXAMINATION GENERAL: This is an elderly female, lying in an ER stretcher, in no acute distress, well developed. VITAL SIGNS: Blood pressure 145/59, pulse ox 97% on room air, heart rate of 88 , temperature of 97.1 Fahrenheit. HEENT: Oral mucosa is dry. There is no nystagmus. Pupils are equal, round, and reactive to light. Tympanic membrane is visualized, pearly palomares, with no effusion. There is no oropharyngeal erythema. LUNGS: There is no tachypnea. No use of accessory muscles. Lungs are clear to auscultation with no wheezing, rales, or rhonchi. HEART: There is no chest wall tenderness. Regular rate and rhythm. 2/6 systolic murmur best heard at the right upper sternal border. ABDOMEN: Bowel sounds are normoactive in all 4 quadrants. Abdomen is soft, nontender, nondistended. EXTREMITIES: There is no lower extremity edema. No calf tenderness. NEUROLOGIC: Alert and oriented x3 with no focal neurological deficits. SKIN: Poor skin turgor with no rashes or lesions identified. DIAGNOSTIC STUDIES/LAB DATA: White count of 5.9, hemoglobin of 13.1, platelets of 175. Sodium of 125. Potassium of 4.9, chloride of 93, BUN of 12, creatinine of 1.23, lactic acid of 1.3, total protein of 6.1, albumin of 3.8. Urinalysis shows specific gravity of 1.10. Otherwise is negative for leukocyte esterase, negative for nitrites and bilirubin. The patient also had abdominal x-ray done, which showed no evidence of any acute finding. IMPRESSION AND PLAN: 1. Hypovolemic hyponatremia: The patient is having moderate hyponatremia. At this point, we will start the patient on gentle IV hydration, monitor sodium closely. This is secondary probably due to dehydration caused by diarrhea. 2. Diarrhea: At this point, we will not intervene as the patient was getting medications and laxatives and enemas for constipation. Abdominal x-ray is benign. There is no fever. I do not suspect C. diff in this patient. 3. Atrial fibrillation: Continue amiodarone. Per the patient, had opted not to take anticoagulation. Continue metoprolol. 4. Unspecified hypothyroidism: Continue levothyroxine. 5. Depression/anxiety: Continue home medications. 6. Healthcare proxy is daughter. The patient is do not resuscitate. Regular diet. Ambulate with assistance. The patient only ambulates with a walker. [id number]/CPS #: [id number] MTDD
[2018-07-21] MEDS: NS 0.9% 1000 ML** 1,000 ML IV SCH (23:25)
[2018-07-22] MEDS: Levothyroxine TAB* 100 MCG TAB PO SCH (06:24)
[2018-07-22 06:35] LABS: ABS Basophils 0 10^3/ul (0-0.2); ABS Eosinophils 0 10^3/ul (0-0.6); ABS Lymphocytes 1.4 10^3/ul (1.0-4.8); ABS Monocytes 0.5 10^3/ul (0-0.8); ABS Neutrophils 2.6 10^3/ul (1.5-7.7); ABS Nucleated RBC 0 10^3/ul; Eosinophil % 0.9 %; Hematocrit 36 % (35-47); Hemoglobin 12.4 g/dl (12.0-16.0); Lymphocyte % 30.4 %; Mean Corpuscular HGB Conc 34 g/dl (31-36); Mean Corpuscular Hemoglobin 32 pg (27-31); Mean Corpuscular Volume 94 fL (80-97); Mean Platelet Volume 9.5 fL (7.4-10.4); Nucleated Red Blood Cells % 0.1; Platelet Count 155 10^3/ul (150-450); Red Blood Count 3.86 10^6/ul (4.00-5.40); Red Cell Distribution Width 14 % (10.5-15); White Blood Count 4.6 10^3/ul (3.5-10.8)
[2018-07-22 06:51] LABS: Calcium 8.6 mg/dL (8.6-10.3); EGFR African American 57.8 (>60); EGFR Non-African American 47.8 (>60); Potassium 3.9 mmol/L (3.5-5.0)
[2018-07-22] MEDS: DULoxetine DR CAP* 20 MG CAP.DR PO SCH (08:24)
[2018-07-22] MEDS: Cholecalciferol TAB* 1000 UNITS PO SCH (08:24)
[2018-07-22] MEDS: Cyanocobalamin TAB* 500 MCG PO SCH (08:24)
[2018-07-22] MEDS: Metoprolol Tartrate TAB* 50 mg PO SCH ×2 (08:24→20:21)
[2018-07-22] MEDS: Pantoprazole TAB * 40 MG TAB PO SCH (08:24)
[2018-07-22] MEDS: Amiodarone TAB* 200 MG PO SCH (08:25)
[2018-07-22] MEDS: ALPRAZolam TAB* 0.25 MG PO SCH ×2 (08:25→20:20)
[2018-07-22] MEDS: NS 0.9% 1000 ML** 1,000 ML IV SCH (09:53)
--- NOTE | 2018-07-22 15:02 | PN ---
Subjective Date of Service: 07/22/18 Interval History: Ms. Dowd is feeling better today. She denies any further diarrhea or headaches. She has had multiples BMs today, but they were not loose. She does feel weak when ambulating to the bathroom. She is having some nausea after eating lunch, but did not have any after breakfast. Denies CP, SOB, vomiting, dizziness. Family History: Unchanged from Admission Social History: Unchanged from Admission Past Medical History: Unchanged from Admission Objective Active Medications: Acetaminophen (Tylenol Tab*) 650 mg PO Q4H PRN FEVER/PAIN Alprazolam (Xanax Tab*) 0.125 mg PO BID [facility] Amiodarone HCl (Cordarone Tab*) 200 mg PO DAILY [facility] Cholecalciferol (Vitamin D Tab*) 2,000 units PO DAILY [facility] Cyanocobalamin (Vitamin B12 Tab*) 500 mcg PO DAILY [facility] Duloxetine HCl (Cymbalta Cap*) 20 mg PO DAILY [facility] Enoxaparin Sodium (Lovenox(*)) 30 mg SUBCUT Q24H [facility] Sodium Chloride (Ns 0.9% 1000 Ml) 1,000 mls @ 100 mls/hr IV PER RATE [facility] Levothyroxine Sodium (Synthroid Tab*) 100 mcg PO 0600 [facility] Metoprolol Tartrate (Lopressor Tab*) 50 mg PO BID [facility] Ondansetron HCl (Zofran Inj*) 4 mg IV Q6H PRN NAUSEA Pantoprazole Sodium (Protonix Tab*) 40 mg PO DAILY [facility] Vital Signs - 8 hr 07/22/18 07/22/18 07/22/18 08:00 08:11 08:25 Temperature 98.2 F Pulse Rate 62 Respiratory 18 16 18 Rate Blood Pressure 146/45 (mmHg) O2 Sat by Pulse 98 Oximetry 07/22/18 07/22/18 10:59 11:35 Temperature 97.8 F Pulse Rate 60 Respiratory 18 18 Rate Blood Pressure 112/39 (mmHg) O2 Sat by Pulse 96 Oximetry Oxygen Devices in Use Now: None Appearance: Elderly female laying in bed in NAD Eyes: No Scleral Icterus Ears/Nose/Mouth/Throat: Mucous Membranes Moist Neck: NL Appearance and Movements; NL JVP, Trachea Midline Respiratory: Symmetrical Chest Expansion and Respiratory Effort, Clear to Auscultation Cardiovascular: RRR, - - Grade 3/6 systolic murmur, best heard RUSB Extremities: No Edema Skin: No Rash or Ulcers Neurological: Alert and Oriented x 3, NL Sensation Lines/Tubes/Other Access: Clean, Dry and Intact Peripheral IV Nutrition: Taking PO's Result Diagrams: 07/22/18 06:23 07/22/18 06:23 Assess/Plan/Problems-Billing Assessment: Ms. Richardson is an 82 yo F with PMH of afib, , HLD, and pacer placement; who presented to the ED with c/o diarrhea and weakness and was found to be hyponatremic, secondary to hypovolemia. - Patient Problems (1) Hyponatremia Code(s): E87.1 - HYPO-OSMOLALITY AND HYPONATREMIA Comment: - Hypovolemic, secondary to diarrhea - Down to 125 on admission, now improved to 129 with IVF - Continue IVF (2) Diarrhea Code(s): R19.7 - DIARRHEA, UNSPECIFIED Comment: - Secondary to laxative use - No concern for cdiff (3) Aortic stenosis Code(s): Q25.3 - SUPRAVALVULAR AORTIC STENOSIS Comment: - Moderate to severe, asymptomatic - Caution with IVF - Continue outpatient f/u with Dr. Espino (4) Atrial fibrillation Code(s): I48.91 - UNSPECIFIED ATRIAL FIBRILLATION Comment: - Rate controlled - Continue metoprolol, amiodarone (5) Hypothyroid Code(s): E03.9 - HYPOTHYROIDISM, UNSPECIFIED Comment: - Continue levothyroxine (6) DVT prophylaxis Comment: - Lovenox (7) DNR (do not resuscitate) Comment: Status and Disposition: Inpatient. Anticipate d/c home when sodium has normalized. Attending: Tae Rock
[2018-07-22] MEDS ORDERED: Ondansetron ODT TAB* 4 MG ONE (17:08)
[2018-07-22] MEDS: Ondansetron ODT TAB* 4 MG SL PRN (17:11)
[2018-07-22] MEDS ORDERED: Metoclopramide IV* 5 MG/ML 2 ML VIAL IV ONE (19:51)
[2018-07-22] MEDS: Enoxaparin(*) 30 MG/0.3 ML SYR SUBCUT SCH (20:21)
[2018-07-22] MEDS: Acetaminophen TAB* 325 MG PO PRN (23:50)
[2018-07-23] MEDS: NS 0.9% 1000 ML** 1,000 ML IV SCH (00:58)
[2018-07-23] MEDS: Acetaminophen TAB* 325 MG PO PRN ×3 (03:45→15:41)
[2018-07-23] MEDS: Levothyroxine TAB* 100 MCG TAB PO SCH (06:11)
[2018-07-23 07:47] LABS: BUN/Creatinine Ratio 9.2 (8-20); Calcium 8.6 mg/dL (8.6-10.3); EGFR African American 58.4 (>60); EGFR Non-African American 48.3 (>60); Potassium 4.1 mmol/L (3.5-5.0)
[2018-07-23] MEDS: ALPRAZolam TAB* 0.25 MG PO SCH ×2 (08:42→23:01)
[2018-07-23] MEDS: Metoprolol Tartrate TAB* 50 mg PO SCH ×2 (08:42→23:03)
[2018-07-23] MEDS: Pantoprazole TAB * 40 MG TAB PO SCH (08:43)
[2018-07-23] MEDS: Cyanocobalamin TAB* 500 MCG PO SCH (08:43)
[2018-07-23] MEDS: Cholecalciferol TAB* 1000 UNITS PO SCH (08:43)
[2018-07-23] MEDS: Amiodarone TAB* 200 MG PO SCH (08:43)
[2018-07-23] MEDS: DULoxetine DR CAP* 20 MG CAP.DR PO SCH ×2 (09:01→23:02)
[2018-07-23] MEDS ORDERED: Furosemide IV* 10 MG/ML 10 ML VIAL (100 MG) IV ONE (11:47)
--- NOTE | 2018-07-23 14:19 | ECHO ---
Patient: YINKA SMITH [facility] Rec#: [id number] : 1935 Date: 07/23/2018 Age: 82y Height: 160 cm / 63.0 in Weight: 58.5 kg / 128.9 lbs Sex: F BSA: 1.6 Room#: [facility] Admit Date#: 07/21/2018 Type: Inpatient Referring: Honey Campbell Reading: Amos Rocha MD Armored Car Guard: Ashley Barnard RN RDCS CC: Angelica Clark MD CC: Luis Espino MD Transthoracic Echocardiogram Indication: Cardiac murmur BP: 131/45 HR: 60 Rhythm: Paced Findings History: A. fib, tachy-inez syndrome, pacemaker, aortic stenosis, thyroid disease, HLD, pericardial effusion S/P pericardiocentesis in 2016, hiatal hernia, essential tremor Technical Comments: The study quality is fair. Left Ventricle: The left ventricular chamber size is normal. Mild concentric left ventricular hypertrophy is observed. There is increased basal septal hypertrophy noted without evidence of an increased gradient across the left ventricular outflow tract. Global left ventricular wall motion and contractility are within normal limits. There is normal left ventricular systolic function. The estimated ejection fraction is 60-65%. Abnormal left ventricular diastolic function is observed. Left Atrium: The left atrium is mildly dilated. Right Ventricle: The right ventricular cavity size is normal. The right ventricular global systolic function is low normal. Right Atrium: The right atrial cavity size is normal. A pacemaker wire is visualized in the right atrium. Aortic Valve: The aortic valve leaflets are moderately thickened. Systolic excursion of the aortic valve cusps is reduced. There is mild to moderate aortic regurgitation. There is severe aortic stenosis. The mean gradient of the aortic valve is 57 mmHg. The peak instantaneous gradient of the aortic valve is 88.7 mmHg. The aortic valve area, by peak velocities, is calculated at 0.6 cm2. The aortic valve area, by VTI's, is calculated at 0.6 cm2. The dimensionless index is 0.19-0.20. Highest aortic valve velocity was acquired with Pedoff in apical position. Mitral Valve: There is mitral annular calcification. The mitral valve leaflets are mildly thickened. There is moderate to severe mitral regurgitation. There is no evidence of mitral stenosis. Tricuspid Valve: The tricuspid valve leaflets are normal. There is mild to moderate tricuspid regurgitation. There is evidence of mild pulmonary hypertension. There is no tricuspid stenosis. Pulmonic Valve: The pulmonic valve structure is not well visualized. There is moderate to severe pulmonic regurgitation. Pericardium: There is no significant pericardial effusion. Aorta: There is mild dilatation of the ascending aorta. 3.9 cm. There is no dilatation of the aortic arch. There is mild dilatation of the aortic root. Pulmonary Artery: The main pulmonary artery is not well visualized. Venous: The inferior vena cava appears normal in size. There is an approximate 50% respiratory change in the inferior vena cava dimension. Conclusions Mild concentric left ventricular hypertrophy is observed. There is increased basal septal hypertrophy noted without evidence of an increased gradient across the left ventricular outflow tract. Global left ventricular wall motion and contractility are within normal limits. The estimated ejection fraction is 60-65%. The right ventricular global systolic function is low normal. Systolic excursion of the aortic valve cusps is reduced. There is severe aortic stenosis. The mean gradient of the aortic valve is 57 mmHg. There is mild to moderate aortic regurgitation. The mitral valve leaflets are mildly thickened. There is moderate to severe mitral regurgitation. There is mild to moderate tricuspid regurgitation. There is evidence of mild pulmonary hypertension. There is no significant pericardial effusion. Compared to study of 05/31/17, the LV funciton is the same. The aortic stenosis is much worse. Mean gradient has increased from 33 to 57 mmHg. Moderate MR is new Measurements Name Value Normal Range RVIDd (AP) 2D 2.3 cm (0.9 - 2.6) RVDdMajor (2D) 3.6 cm (2.2 - 4.4) RAd ISD 4CH 4.5 cm (3.4 - 4.9) RA (A4C)W 3.4 cm (2.9 - 4.6) IVSd (2D) 1.1 cm (0.6 - 1) LVPWd (2D) 1 cm (0.6 - 1) LVIDd (2D) 3.9 cm (3.6 - 5.4) LVIDs (2D) 2.7 cm - LV FS (2D) 31 % (25 - 45) Aortic Annulus 1.8 cm (1.4 - 2.6) Ao root diameter (2D) 3.6 cm (2.1 - 3.5) Ascending Ao 3.9 cm (2.1 - 3.4) Aortic arch 2.6 cm (1.8 - 3.4) LA dimension (AP) 2D 3.5 cm (2.3 - 3.8) LAd ISD 4CH 4.7 cm (2.9 - 5.3) LA ISD 4CH W 3.7 cm (2.5 - 4.5) Name Value Normal Range LA ESV SP 4CH (A/L) 50 ml - LA ESV SP 2CH (A/L) 70 ml - LA ESV BP (A/L) 63 ml - LA ESV BP (A/L) index 39 ml/m2 - LA ESV SP 4CH (MOD) 46 ml - LA ESV SP 2CH (MOD) 68 ml - Name Value Normal Range MV E-wave Vmax 1 m/sec - MV deceleration time 167 msec - MV A-wave Vmax 0.65 m/sec - MV E:A ratio 1.6 ratio - LV septal e' Vmax 0.05 m/sec - LV lateral e' Vmax 0.04 m/sec - LV E:e' septal ratio 20 ratio - LV E:e' lateral ratio 25 ratio - Name Value Normal Range AV Vmax 4.7 m/sec - AV VTI 125.5 cm - AV peak gradient 88.7 mmHg - AV mean gradient 57 mmHg - AV annulus diameter 1.95 cm - LVOT diameter 2 cm - LVOT Vmax 0.96 m/sec - LVOT VTI 23.8 cm - LVOT peak gradient 3.7 mmHg - LVOT mean gradient 2.4 mmHg - DOI (VTI) 0.19 ratio - DOI (Vmax) 0.2 ratio - RHYS (continuity Vmax) 0.6 cm2 - RHYS (continuity VTI) 0.6 cm2 - AR PHT 479 msec - BROOKE Vmax 0.55 m/sec - Name Value Normal Range MR Vmax 6.3 m/sec - MR VTI 222.1 cm - MR volume (PISA) 52 ml - MR flow (PISA) 148 ml/sec - MR ERO 0.23 cm2 - MR PISA radius 0.8 cm - MR alias Vmax 35 cm/sec - Name Value Normal Range TR Vmax 2.8 m/sec - TR peak gradient 31 mmHg - RAP 8 mmHg - RVSP 39 mmHg - IVC diameter 1.6 cm - Name Value Normal Range PV Vmax 0.67 m/sec -
--- NOTE | 2018-07-23 17:36 | PN ---
Subjective Date of Service: 07/23/18 Interval History: Patient seen and examined. States she is extremely fatigued but not SOB. Fatigues quickly with ambulation. No chest pain, no syncope or dizziness. Diarrhea has subsided. No fevers or chills. Family History: Unchanged from Admission Social History: Unchanged from Admission Past Medical History: Unchanged from Admission Objective Active Medications: Acetaminophen (Tylenol Tab*) 650 mg PO Q4H PRN PRN Reason: FEVER/PAIN Last Admin: 07/23/18 15:41 Dose: 650 mg Alprazolam (Xanax Tab*) 0.125 mg PO BID [facility] Last Admin: 07/23/18 08:42 Dose: 0.125 mg Amiodarone HCl (Cordarone Tab*) 200 mg PO DAILY [facility] Last Admin: 07/23/18 08:43 Dose: 200 mg Cholecalciferol (Vitamin D Tab*) 2,000 units PO DAILY [facility] Last Admin: 07/23/18 08:43 Dose: 2,000 units Cyanocobalamin (Vitamin B12 Tab*) 500 mcg PO DAILY [facility] Last Admin: 07/23/18 08:43 Dose: 500 mcg Duloxetine HCl (Cymbalta Cap*) 20 mg PO 2100 [facility] Enoxaparin Sodium (Lovenox(*)) 30 mg SUBCUT Q24H [facility] Last Admin: 07/22/18 20:21 Dose: Not Given Levothyroxine Sodium (Synthroid Tab*) 100 mcg PO 0600 [facility] Last Admin: 07/23/18 06:11 Dose: 100 mcg Metoprolol Tartrate (Lopressor Tab*) 50 mg PO BID [facility] Last Admin: 07/23/18 08:42 Dose: 50 mg Ondansetron HCl (Zofran Odt Tab*) 4 mg SL Q6H PRN PRN Reason: NAUSEA/VOMITING Last Admin: 07/22/18 17:11 Dose: 4 mg Pantoprazole Sodium (Protonix Tab*) 40 mg PO DAILY [facility] Last Admin: 07/23/18 08:43 Dose: 40 mg Vital Signs - 8 hr 07/23/18 07/23/18 11:18 15:39 Temperature 97.4 F Pulse Rate 59 Respiratory 16 16 Rate Blood Pressure 130/50 (mmHg) O2 Sat by Pulse 96 Oximetry Oxygen Devices in Use Now: None Appearance: alert, NAD Eyes: No Scleral Icterus, PERRLA Ears/Nose/Mouth/Throat: NL Teeth, Lips, Gums, Mucous Membranes Moist Neck: NL Appearance and Movements; NL JVP, Trachea Midline Respiratory: Symmetrical Chest Expansion and Respiratory Effort, - - diminished throughout lung bartholomew, no wheeze Cardiovascular: RRR, - - grade III/ murmur noted Abdominal: NL Sounds; No Tenderness; No Distention Skin: No Rash or Ulcers, No Nodules or Sclerosis Neurological: Alert and Oriented x 3, - - essential tremors noted at baseline Nutrition: Taking PO's Result Diagrams: 07/22/18 06:23 07/23/18 06:58 Diagnostic Imaging: CARDIAC ECHO: Mild concentric left ventricular hypertrophy is observed. There is increased basal septal hypertrophy noted without evidence of an increased gradient across the left ventricular outflow tract. Global left ventricular wall motion and contractility are within normal limits. The estimated ejection fraction is 60-65%. The right ventricular global systolic function is low normal. Systolic excursion of the aortic valve cusps is reduced. There is severe aortic stenosis. The mean gradient of the aortic valve is 57 mmHg. There is mild to moderate aortic regurgitation. The mitral valve leaflets are mildly thickened. There is moderate to severe mitral regurgitation. There is mild to moderate tricuspid regurgitation. There is evidence of mild pulmonary hypertension. There is no significant pericardial effusion. Compared to study of 05/31/17, the LV funciton is the same. The aortic stenosis is much worse. Mean gradient has increased from 33 to 57 mmHg. Moderate MR is new Assess/Plan/Problems-Billing Assessment: Ms. Richardson is an 82 yo F with PMH of afib, , HLD, and pacer placement; who presented to the ED with c/o diarrhea and weakness and was found to be hyponatremic, secondary to hypovolemia. - Patient Problems (1) Diarrhea Code(s): R19.7 - DIARRHEA, UNSPECIFIED SNOMED Code(s): 63486916 Comment: - Resolved - Secondary to laxative use - No concern for cdiff (2) Hyponatremia Code(s): E87.1 - HYPO-OSMOLALITY AND HYPONATREMIA SNOMED Code(s): 80436824 Comment: - Hypovolemic, secondary to diarrhea - Na = 130 today, continues to correct - DC IVF (3) Acute diastolic (congestive) heart failure Code(s): I50.31 - ACUTE DIASTOLIC (CONGESTIVE) HEART FAILURE SNOMED Code(s): 229481538 Comment: - Appears to be acute on chronic diastolic failure per records - BNP >1300 today - ECHO as above, is now severe and MS is new/moderate - Stop IVF, lasix 60mg IVP today and then 40mg IV daily - Strict I&Os and daily weights, low Na diet (4) Aortic stenosis Code(s): Q25.3 - SUPRAVALVULAR AORTIC STENOSIS SNOMED Code(s): 81340068 Comment: - Now severe on ECHO and is fluid overloaded - Will need to address valvular diseas as an outpatient with Dr. Espino - Continue diuresis (5) Essential tremor Code(s): G25.0 - ESSENTIAL TREMOR SNOMED Code(s): 337570030 Comment: - Follows with Dr. Davis as an outpatient - Supportive care (6) DVT prophylaxis Code(s): MCX6992 - SNOMED Code(s): 668828831 Comment: - Lovenox SQ (7) DNR (do not resuscitate) Comment: Status and Disposition: Inpatient for diuresis and cardiac optimization.
[2018-07-23] MEDS: Enoxaparin(*) 30 MG/0.3 ML SYR SUBCUT SCH (23:03)
[2018-07-24] MEDS: Levothyroxine TAB* 100 MCG TAB PO SCH (05:53)
[2018-07-24] MEDS: Cholecalciferol TAB* 1000 UNITS PO SCH (09:34)
[2018-07-24] MEDS: ALPRAZolam TAB* 0.25 MG PO SCH ×2 (09:35→21:36)
[2018-07-24] MEDS: Cyanocobalamin TAB* 500 MCG PO SCH (09:36)
[2018-07-24] MEDS: Pantoprazole TAB * 40 MG TAB PO SCH (09:37)
[2018-07-24] MEDS: Amiodarone TAB* 200 MG PO SCH (09:37)
[2018-07-24] MEDS: Furosemide IV* 10 MG/ML VIAL (40 MG) IV SCH (09:38)
[2018-07-24] MEDS: Metoprolol Tartrate TAB* 50 mg PO SCH ×2 (09:38→21:31)
--- NOTE | 2018-07-24 17:19 | PN ---
Subjective Date of Service: 07/24/18 Interval History: Patient seen and examined. No acute overnight events. Continues to diurese, no chest pain, no SOB, still feels generally weak. Family History: Unchanged from Admission Social History: Unchanged from Admission Past Medical History: Unchanged from Admission Objective Active Medications: Acetaminophen (Tylenol Tab*) 650 mg PO Q4H PRN PRN Reason: FEVER/PAIN Last Admin: 07/23/18 15:41 Dose: 650 mg Alprazolam (Xanax Tab*) 0.125 mg PO BID [facility] Last Admin: 07/24/18 09:35 Dose: 0.125 mg Amiodarone HCl (Cordarone Tab*) 200 mg PO DAILY [facility] Last Admin: 07/24/18 09:37 Dose: 200 mg Cholecalciferol (Vitamin D Tab*) 2,000 units PO DAILY [facility] Last Admin: 07/24/18 09:34 Dose: 2,000 units Cyanocobalamin (Vitamin B12 Tab*) 500 mcg PO DAILY [facility] Last Admin: 07/24/18 09:36 Dose: 500 mcg Duloxetine HCl (Cymbalta Cap*) 20 mg PO 2100 [facility] Last Admin: 07/23/18 23:02 Dose: 20 mg Enoxaparin Sodium (Lovenox(*)) 30 mg SUBCUT Q24H [facility] Last Admin: 07/23/18 23:03 Dose: Not Given Furosemide (Lasix Iv*) 40 mg IV DAILY [facility] Last Admin: 07/24/18 09:38 Dose: 40 mg Levothyroxine Sodium (Synthroid Tab*) 100 mcg PO 0600 [facility] Last Admin: 07/24/18 05:53 Dose: 100 mcg Metoprolol Tartrate (Lopressor Tab*) 50 mg PO BID [facility] Last Admin: 07/24/18 09:38 Dose: 50 mg Ondansetron HCl (Zofran Odt Tab*) 4 mg SL Q6H PRN PRN Reason: NAUSEA/VOMITING Last Admin: 07/22/18 17:11 Dose: 4 mg Pantoprazole Sodium (Protonix Tab*) 40 mg PO DAILY [facility] Last Admin: 07/24/18 09:37 Dose: 40 mg Vital Signs - 8 hr 07/24/18 07/24/18 07/24/18 09:29 09:35 11:12 Temperature 98.1 F 98.0 F Pulse Rate 60 59 Respiratory 20 20 18 Rate Blood Pressure 109/37 115/34 (mmHg) O2 Sat by Pulse 96 98 Oximetry 07/24/18 15:27 Temperature 98.1 F Pulse Rate 59 Respiratory 16 Rate Blood Pressure 123/45 (mmHg) O2 Sat by Pulse 94 Oximetry Oxygen Devices in Use Now: None Appearance: alert, NAD Eyes: No Scleral Icterus, PERRLA Ears/Nose/Mouth/Throat: NL Teeth, Lips, Gums, Mucous Membranes Moist Neck: NL Appearance and Movements; NL JVP, Trachea Midline Respiratory: Symmetrical Chest Expansion and Respiratory Effort, Clear to Auscultation, - - fine rales at bases Cardiovascular: RRR, No Edema, - - grade III/ mumur Abdominal: NL Sounds; No Tenderness; No Distention Extremities: No Edema, No Clubbing, Cyanosis Skin: No Rash or Ulcers Neurological: Alert and Oriented x 3, - - general weakness Nutrition: Taking PO's Result Diagrams: 07/22/18 06:23 07/23/18 06:58 Diagnostic Imaging: CARDIAC ECHO: Mild concentric left ventricular hypertrophy is observed. There is increased basal septal hypertrophy noted without evidence of an increased gradient across the left ventricular outflow tract. Global left ventricular wall motion and contractility are within normal limits. The estimated ejection fraction is 60-65%. The right ventricular global systolic function is low normal. Systolic excursion of the aortic valve cusps is reduced. There is severe aortic stenosis. The mean gradient of the aortic valve is 57 mmHg. There is mild to moderate aortic regurgitation. The mitral valve leaflets are mildly thickened. There is moderate to severe mitral regurgitation. There is mild to moderate tricuspid regurgitation. There is evidence of mild pulmonary hypertension. There is no significant pericardial effusion. Compared to study of 05/31/17, the LV funciton is the same. The aortic stenosis is much worse. Mean gradient has increased from 33 to 57 mmHg. Moderate MR is new Assess/Plan/Problems-Billing Assessment: Ms. Richardson is an 82 yo F with PMH of afib, , HLD, and pacer placement; who presented to the ED with c/o diarrhea and weakness and was found to be hyponatremic, secondary to hypovolemia, subsequently fluid overloaded. - Patient Problems (1) Diarrhea Code(s): R19.7 - DIARRHEA, UNSPECIFIED SNOMED Code(s): 13039367 Comment: - Resolved - Secondary to laxative use - No concern for cdiff (2) Hyponatremia Code(s): E87.1 - HYPO-OSMOLALITY AND HYPONATREMIA SNOMED Code(s): 57823670 Comment: - Hypovolemic, secondary to diarrhea - Na = 130 07/23, recheck today (3) Acute diastolic (congestive) heart failure Code(s): I50.31 - ACUTE DIASTOLIC (CONGESTIVE) HEART FAILURE SNOMED Code(s): 519002317 Comment: - Appears to be acute on chronic diastolic failure per records - BNP >1300 07/23, recheck today - ECHO as above, is now severe and MS is new/moderate - Continue lasix 40mg IVP daily - Strict I&Os and daily weights, low Na diet (4) Aortic stenosis Code(s): Q25.3 - SUPRAVALVULAR AORTIC STENOSIS SNOMED Code(s): 16293563 Comment: - Now severe on ECHO and is fluid overloaded - Will need to address valvular diseas as an outpatient with Dr. Espino - Continue diuresis (5) Essential tremor Code(s): G25.0 - ESSENTIAL TREMOR SNOMED Code(s): 348820915 Comment: - Follows with Dr. Davis as an outpatient - Supportive care (6) DVT prophylaxis Code(s): [id number] - SNOMED Code(s): 932184296 Comment: - Lovenox SQ (7) DNR (do not resuscitate) Comment: Status and Disposition: Inpatient for diuresis and cardiac optimization. Maybe DC tomorrow.
[2018-07-24 17:54] LABS: BUN/Creatinine Ratio 8.1 (8-20); Calcium 9.4 mg/dL (8.6-10.3); EGFR African American 40.7 (>60); EGFR Non-African American 33.7 (>60); Potassium 3.8 mmol/L (3.5-5.0)
[2018-07-24] MEDS: DULoxetine DR CAP* 20 MG CAP.DR PO SCH (21:36)
[2018-07-24] MEDS: Enoxaparin(*) 30 MG/0.3 ML SYR SUBCUT SCH (21:38)
[2018-07-25] MEDS: Acetaminophen TAB* 325 MG PO PRN (02:39)
[2018-07-25] MEDS: Levothyroxine TAB* 100 MCG TAB PO SCH (05:58)
[2018-07-25] MEDS: Cyanocobalamin TAB* 500 MCG PO SCH (08:48)
[2018-07-25] MEDS: Metoprolol Tartrate TAB* 50 mg PO SCH ×2 (08:48→21:24)
[2018-07-25] MEDS: Ondansetron ODT TAB* 4 MG SL PRN (08:48)
[2018-07-25] MEDS: Cholecalciferol TAB* 1000 UNITS PO SCH (08:48)
[2018-07-25] MEDS: ALPRAZolam TAB* 0.25 MG PO SCH ×2 (08:49→21:24)
[2018-07-25] MEDS: Pantoprazole TAB * 40 MG TAB PO SCH (08:49)
[2018-07-25] MEDS: Amiodarone TAB* 200 MG PO SCH (08:50)
[2018-07-25] MEDS: Furosemide IV* 10 MG/ML VIAL (40 MG) IV SCH (08:50)
[2018-07-25] MEDS ORDERED: Al Hydrox/Mg Hydrox/Simet LIQ* 30 ML UDC PO PRN (11:06)
[2018-07-25] MEDS: PROCHLORPERAZINE INJ 5 MG/ML 2 ML VIAL IV PRN (14:21)
--- NOTE | 2018-07-25 17:28 | PN ---
Subjective Date of Service: 07/25/18 Interval History: Patient seen and examined. States she has "indigestion" and felt nausous, but no vomiting. Patient asked for laxative because she has not had a bowel movement in two days, explained that excess laxative use caused her to have diarrhea and dehydration, which is the reason why she was hospitalized. States she still feels weak. This afternoon, RN said patient had diarrhea twice, and patient states she drank two glasses of prune juice this morning. Cautioned patient against the prune juice given her diarrhea at admission. Family History: Unchanged from Admission Social History: Unchanged from Admission Past Medical History: Unchanged from Admission Objective Active Medications: Acetaminophen (Tylenol Tab*) 650 mg PO Q4H PRN PRN Reason: FEVER/PAIN Last Admin: 07/25/18 02:39 Dose: 650 mg Al Hydrox/Mg Hydrox/Simethicone (Maalox Plus*) 30 ml PO Q6H PRN PRN Reason: DYSPEPSIA Last Admin: 07/25/18 11:40 Dose: 30 ml Alprazolam (Xanax Tab*) 0.125 mg PO BID [facility] Last Admin: 07/25/18 08:49 Dose: 0.125 mg Amiodarone HCl (Cordarone Tab*) 200 mg PO DAILY [facility] Last Admin: 07/25/18 08:50 Dose: 200 mg Cholecalciferol (Vitamin D Tab*) 2,000 units PO DAILY [facility] Last Admin: 07/25/18 08:48 Dose: 2,000 units Cyanocobalamin (Vitamin B12 Tab*) 500 mcg PO DAILY [facility] Last Admin: 07/25/18 08:48 Dose: 500 mcg Duloxetine HCl (Cymbalta Cap*) 20 mg PO 2100 [facility] Last Admin: 07/24/18 21:36 Dose: 20 mg Enoxaparin Sodium (Lovenox(*)) 30 mg SUBCUT Q24H [facility] Last Admin: 07/24/18 21:38 Dose: 30 mg Furosemide (Lasix Iv*) 40 mg IV DAILY [facility] Last Admin: 07/25/18 08:50 Dose: 40 mg Levothyroxine Sodium (Synthroid Tab*) 100 mcg PO 0600 [facility] Last Admin: 07/25/18 05:58 Dose: 100 mcg Metoprolol Tartrate (Lopressor Tab*) 50 mg PO BID [facility] Last Admin: 07/25/18 08:48 Dose: 50 mg Ondansetron HCl (Zofran Odt Tab*) 4 mg SL Q6H PRN PRN Reason: NAUSEA/VOMITING Last Admin: 07/25/18 08:48 Dose: 4 mg Pantoprazole Sodium (Protonix Tab*) 40 mg PO DAILY [facility] Last Admin: 07/25/18 08:49 Dose: 40 mg Prochlorperazine Edisylate (Compazine Inj*) 2.5 mg IV Q6H PRN PRN Reason: NAUSEA/VOMITING Last Admin: 07/25/18 14:21 Dose: 2.5 mg Vital Signs - 8 hr 07/25/18 10:50 Respiratory 20 Rate Oxygen Devices in Use Now: None Appearance: alert, anxious Eyes: No Scleral Icterus, PERRLA Ears/Nose/Mouth/Throat: Mucous Membranes Moist Neck: NL Appearance and Movements; NL JVP, Trachea Midline Respiratory: Symmetrical Chest Expansion and Respiratory Effort, Clear to Auscultation Cardiovascular: NL Sounds; No Murmurs; No JVD, RRR Abdominal: NL Sounds; No Tenderness; No Distention Extremities: No Edema, No Clubbing, Cyanosis Skin: No Rash or Ulcers Neurological: Alert and Oriented x 3, - - essential tremor Nutrition: Taking PO's Result Diagrams: 07/22/18 06:23 07/24/18 17:32 Diagnostic Imaging: CARDIAC ECHO: Mild concentric left ventricular hypertrophy is observed. There is increased basal septal hypertrophy noted without evidence of an increased gradient across the left ventricular outflow tract. Global left ventricular wall motion and contractility are within normal limits. The estimated ejection fraction is 60-65%. The right ventricular global systolic function is low normal. Systolic excursion of the aortic valve cusps is reduced. There is severe aortic stenosis. The mean gradient of the aortic valve is 57 mmHg. There is mild to moderate aortic regurgitation. The mitral valve leaflets are mildly thickened. There is moderate to severe mitral regurgitation. There is mild to moderate tricuspid regurgitation. There is evidence of mild pulmonary hypertension. There is no significant pericardial effusion. Compared to study of 05/31/17, the LV funciton is the same. The aortic stenosis is much worse. Mean gradient has increased from 33 to 57 mmHg. Moderate MR is new Assess/Plan/Problems-Billing Assessment: Ms. Richardson is an 82 yo F with PMH of afib, , HLD, and pacer placement; who presented to the ED with c/o diarrhea and weakness and was found to be hyponatremic, secondary to hypovolemia, subsequently fluid overloaded. - Patient Problems (1) Diarrhea Code(s): R19.7 - DIARRHEA, UNSPECIFIED SNOMED Code(s): 33007637 Comment: - Initiatlly resolved, then patient drank prune juice which caused diarrhea again - Explained to patient that she should not be taking laxatives or prune juice - Continue to monitor BMs (2) Hyponatremia Code(s): E87.1 - HYPO-OSMOLALITY AND HYPONATREMIA SNOMED Code(s): 44558193 Comment: - Hypovolemic, secondary to diarrhea - Bk=210, stable (3) Acute diastolic (congestive) heart failure Code(s): I50.31 - ACUTE DIASTOLIC (CONGESTIVE) HEART FAILURE SNOMED Code(s): 763216363 Comment: - Appears to be acute on chronic diastolic failure per records - BNP >1300 07/23, trending down - ECHO as above, is now severe and MS is new/moderate - Responding to IV lasix, will change to PO tomorrow - Strict I&Os and daily weights, low Na diet (4) Aortic stenosis Code(s): Q25.3 - SUPRAVALVULAR AORTIC STENOSIS SNOMED Code(s): 14249078 Comment: - Now severe on ECHO and is fluid overloaded - Will need to address valvular diseas as an outpatient with Dr. Espino - Continue diuresis (5) Dyspepsia Code(s): R10.13 - EPIGASTRIC PAIN SNOMED Code(s): 619967430 Comment: - Zofran and compazine PRN - Checked EKG and trop, EKG has no changes and trop is negative, cardiac chest pain is low on the differential, likely 2/2 GI distress - Continue PPI (6) Essential tremor Code(s): G25.0 - ESSENTIAL TREMOR SNOMED Code(s): 000625029 Comment: - Follows with Dr. Davis as an outpatient - Supportive care (7) DVT prophylaxis Code(s): CYM5730 - SNOMED Code(s): 275160007 Comment: - Lovenox SQ (8) DNR (do not resuscitate) Comment: Status and Disposition: Inpatient for diuresis and cardiac optimization. Will DC in AM with home health.
[2018-07-25] MEDS: DULoxetine DR CAP* 20 MG CAP.DR PO SCH (21:24)
[2018-07-25] MEDS: Enoxaparin(*) 30 MG/0.3 ML SYR SUBCUT SCH (21:24)
[2018-07-26] MEDS: Acetaminophen TAB* 325 MG PO PRN (01:39)
[2018-07-26] MEDS: Levothyroxine TAB* 100 MCG TAB PO SCH (05:57)
[2018-07-26] MEDS: Amiodarone TAB* 200 MG PO SCH (09:13)
[2018-07-26] MEDS: Metoprolol Tartrate TAB* 50 mg PO SCH (09:14)
[2018-07-26] MEDS: Cholecalciferol TAB* 1000 UNITS PO SCH (09:14)
[2018-07-26] MEDS: Cyanocobalamin TAB* 500 MCG PO SCH (09:14)
[2018-07-26] MEDS: ALPRAZolam TAB* 0.25 MG PO SCH (09:15)
[2018-07-26] MEDS: Pantoprazole TAB * 40 MG TAB PO SCH (09:15)
[2018-07-26] MEDS: PROCHLORPERAZINE INJ 5 MG/ML 2 ML VIAL IV PRN (09:15)
[2018-07-26] MEDS: Furosemide IV* 10 MG/ML VIAL (40 MG) IV SCH (09:16)
[2018-07-26 15:07] VITALS: BP 93/42
--- NOTE | 2018-07-26 20:58 | DS ---
CC: Dr. Angelica Clark; Dr. Lius Espino, Cardiology; Dr. Henderson * DISCHARGE SUMMARY: DATE OF ADMISSION: 07/21/18 DATE OF DISCHARGE: 07/26/18 PRIMARY CARE PROVIDER: Dr. Angelica Clark. MY ATTENDING FOR THIS ADMISSION: Dr. Jil John.* (DICTATED BY CHETAN ANAYA NP) HOSPITAL COURSE: Please refer to admission H and P dated 07/21/18; however, in short, this is a pleasant 82-year-old female patient who presented to the emergency department with complaint of diarrhea, persistent loose stools, and dehydration. The patient states she had baseline constipation at home and had been taking multiple bouts of laxatives. Because she had been constipated, she has actually had 1 visit to the ER prior to, was given laxatives and an enema; however, the patient then returned to the ER with significant dehydration, some nausea, no fevers, but she did have chills. The patient was admitted for dehydration. She was given fluid administration; however, the patient began to feel very fatigued. She does have a significant cardiac history including aortic stenosis, atrial fibrillation, pacemaker, history of a pericardial effusion in the past, and hyperlipidemia. The patient again was complaining of some weakness and fatigue. Breath sounds were diminished at the bases with some rales. We sent the patient for an echocardiogram which noted her aortic stenosis, which had been moderate was now severe. The patient also appeared to be very fluid overloaded with an elevated BNP. BNP was greater than 1300. She received Lasix 60 mg IV to start and then 40 mg a day for 3 days. BNP was trending down, last value was 766. The patient did not have any further shortness of breath, had no other changes in her cardiac status. She did have some brief bouts of nausea for which she responded well to antiemetics. It was also significant to note that the patient did drink a significant amount of prune juice one day and then restarted her diarrhea. The patient was instructed not to order prune juice. I also explained to the patient when she asked for laxatives again that that would be inappropriate, that was the start of her issues to begin with. The patient seemed to respond to that. I had a long conversation with her son explaining her aortic stenosis and also discussed it briefly with Dr. Rocha after he evaluated her echocardiogram. The aortic stenosis should be addressed as an outpatient. 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 The patient was discharged to home in the care of family with in-home services. When the patient did initially complain of indigestion, given her aortic stenosis and fluid overload, we did do an EKG and troponins. The EKG showed her baseline atrial pacing with no acute ST segment changes. Also, her troponin was negative. DISCHARGE DIAGNOSES: 1. Diarrhea and dehydration, now resolved. 2. Hyponatremia, profound, secondary to diarrhea, now resolved with IV fluids. 3. Acute diastolic heart failure secondary to aggressive fluid repletion, now resolving. 4. Aortic stenosis, currently severe. 5. Dyspepsia, resolved. 6. History of essential tremor, at baseline. MEDICATIONS FOR DISCHARGE: Include: 1. Zofran 4 mg p.o. q.6 hours as needed. 2. Omeprazole 20 mg p.o. daily. 3. Multivitamin 1 tablet daily. 4. Metoprolol tartrate 50 mg p.o. b.i.d. 5. Levothyroxine 100 mcg p.o. q.a.m. 6. Vitamin D2 2000 units p.o. daily. 7. Vitamin B12 one tablet daily. 8. Cranberry extract 1 tab p.o. daily. 9. Amiodarone 200 mg p.o. daily. 10. Tylenol 650 mg q.6 hours as needed. 11. Xanax 0.5 mg p.o. b.i.d. 12. Duloxetine 20 mg p.o. daily. 13. Zofran 4 mg sublingual q.6 hours as needed. 14. Lasix 20 mg every other day for 2 weeks. 15. Maalox Plus 30 mL q.6 hours as needed for indigestion. REVIEW OF SYSTEMS: The patient denies any fever, fatigue, or chills. No chest pain, no shortness of breath. She does endorse some general weakness and her essentially tremors, which are her baseline. She ambulates with a walker. She denies any abdominal pain. No nausea, no vomiting, no diarrhea today. PHYSICAL EXAMINATION: The patient is alert, some mild anxiety noted at baseline , somewhat frail appearing, but in no acute distress. Vital signs are blood pressure 124/98, heart rate 61 and paced, O2 saturation 93% to 98% on room air, respiratory rate 18 with temperature of 98.0. HEENT: The patient is atraumatic , normocephalic. PERRLA with nonicteric sclerae. Neck is supple, nontender. No JVD noted. No carotid bruits auscultated. Cardiovascular: S1, S2 present. She has a grade 3/6 systolic murmur noted. Rate and rhythm are regular. She is paced on telemetry. Lungs are clear bilaterally to auscultation with no wheezing, rhonchi, or rales. Abdomen is soft, nontender, nondistended. Positive bowel sounds in all 4 quadrants. is deferred. Musculoskeletal: There is no clubbing, no cyanosis, no edema. She has a steady gait with a walker. Neurologic: She has essential tremor at her baseline, otherwise no focal deficits. Psychiatric: She is mildly anxious that is her baseline. She is, however, appropriate. DIAGNOSTIC STUDIES/LAB DATA: WBCs 4.6, RBCs 3.86, hemoglobin 12.4, hematocrit 36, platelets 155. Sodium 130, potassium 4.1, chloride 101, CO2 of 24, BUN 10, creatinine 1.09, GFR 48.3, lactic acid was 1.3, calcium 8.6. Total protein 6.1. Urinalysis did not show any acute infective process. Imaging: Her x-ray of the abdomen dated 07/21/18 showed no evidence of any acute finding. Her chest x-ray dated 07/23/18 showed no radiographic evidence for acute cardiopulmonary abnormalities. Her transthoracic echocardiogram dated 07/23/18 showed some mild concentric left ventricular hypertrophy, increased basal septal hypertrophy noted without evidence of increased gradient across the left ventricular outflow tract. Global left ventricular wall motion and contractility are within normal limits. Estimated EF of 60% to 65%. Right ventricular global systolic function was low normal. Systolic excursion of the aortic valve cusps is reduced. There is severe aortic stenosis, mean gradient of the aortic valve is 57 mmHg. There is [id number] aortic regurgitation. The mitral valve leaflets are mildly thickened. There is [id number] mitral regurg, [id number] tricuspid regurg, evidence of mild pulmonary hypertension. There is no significant pericardial effusion. Compared to the study of 12/20/17, the left ventricular function is the same, the aortic stenosis is much worse, the mean gradient has increased from 33 to 57 mmHg, and the moderate mitral regurgitation is new. DISPOSITION: The patient will be discharged to home in the care of family. She will also have services in her home. FOLLOWUPS: The patient was instructed to follow up with her primary care provider, Dr. Angelica Clark, and also Dr. Luis Espino, her board mill supervisor, to discuss her aortic stenosis, also to determine further need for any diuretics. DISCHARGE CONDITION: The patient was discharged in stable condition. All questions were answered. Case Management also reached out to the son to discuss her discharge plan for which he was in agreement. TIME SPENT: Approximately 45 minutes interfacing with the patient and determining discharge plan of care. CHETAN ANAYA NP [id number]/[facility] #: [id number] MARINA
== END 2018-07-26 15:40 | disposition home or self-care (01) | DRG 640 ==
LOC: ED 14:29 → MED 19:42
PROVIDERS: ADMIT Internal Medicine; ATTEND Hospitalist
DX: E87.1 Hypo-osmolality and hyponatremia (principal); I50.31 Acute diastolic (congestive) heart failure; I48.91 Unspecified atrial fibrillation; R19.7 Diarrhea, unspecified; E03.9 Hypothyroidism, unspecified; Z66 Do not resuscitate; G25.0 Essential tremor; E86.0 Dehydration; K21.9 Gastro-esophageal reflux disease without esophagitis; M19.90 Unspecified osteoarthritis, unspecified site; K44.9 Diaphragmatic hernia without obstruction or gangrene; G43.909 Migraine, unspecified, not intractable, without status migrainosus; E86.1 Hypovolemia; F32.9 Major depressive disorder, single episode, unspecified; I27.20 Pulmonary hypertension, unspecified; I08.3 Combined rheumatic disorders of mitral, aortic and tricuspid valves; F41.9 Anxiety disorder, unspecified; Z96.641 Presence of right artificial hip joint; R10.13 Epigastric pain; Z85.820 Personal history of malignant melanoma of skin; Z82.49 Family history of ischemic heart disease and other diseases of the circulatory system; Z83.3 Family history of diabetes mellitus; Z90.710 Acquired absence of both cervix and uterus; Z90.49 Acquired absence of other specified parts of digestive tract; Z90.89 Acquired absence of other organs; Z88.2 Allergy status to sulfonamides; Z88.0 Allergy status to penicillin; Z95.0 Presence of cardiac pacemaker; Z88.8 Allergy status to other drugs, medicaments and biological substances; Z98.42 Cataract extraction status, left eye; Z98.41 Cataract extraction status, right eye; Z82.3 Family history of stroke
CPT/HCPCS: 36415; 71045; 74019; 80048; 80053; 81003; 83605; 83690; 83880; 84300; 84484; 85025; 86140; 93005; 93306; 99283; A9270-GY; J0780; J1650; J1940; J2765